=== PATIENT | female | born 1955 | race Caucasian/White ===

== ENCOUNTER → 2016-08-16 | Outpatient (CLI) | payer BC, OTHER ==
[~2016-08-16] MED LIST: ATOR-24 PO; BIAXIN PO; CZR50 PO; DOXE10CA PO; FEXO1TAB46 PO; GABA-112 PO; LEVO100T PO; LEVO75TA PO; LOSA50TA6 PO; METO25TA3 PO; OMEP40CA PO; RANI300T2 PO; TRIATAB3 PO
[2016-08-16 14:57] LABS: BASO % 0.4 %; BASO ABS # 0.03 K/uL (0-0.2); COMPLETE YES; EOS % 2.2 %; HEMATOCRIT 43.1 % (37-47); IG% 0.4 %; LYMPH ABS # 2.21 K/uL (1.2-3.4); MEAN CELL VOLUME 89.8 fL (80-100); MEAN CORPUSCULAR HEMOGLOBIN 29.4 pg (25-34); MEAN CORPUSCULAR HGB CONC 32.7 g/dl (32-36); MEAN PLATELET VOLUME 10.6 fL (7.4-10.4); MONO % 5.5 %; NEUT % 62.5 %; PLATELET COUNT 282 K/uL (130-400); WHITE BLOOD COUNT 7.63 K/uL (4.8-10.8)
[2016-08-16 15:06] LABS: ALT/SGPT 36 U/L (12-78); AST/SGOT 15 U/L (15-37); BLOOD UREA NITROGEN 17 mg/dl (7-18); BUN/CREATININE RATIO 19.9 (10-20); CALCIUM 8.9 mg/dl (8.5-10.1); CARBON DIOXIDE 27 mmol/L (21-32); CHLORIDE 106 mmol/L (98-107); CREATININE 0.86 mg/dl (0.60-1.20); GLUCOSE 122 mg/dl (70-99); POTASSIUM 4.2 mmol/L (3.5-5.1); SODIUM 141 mmol/L (136-145)
[2016-08-16 15:11] LABS: ALB/GLOB RATIO 1.2 (0.9-2); ALKALINE PHOSPHATASE 62 U/L (45-117); CHOLESTEROL 136 mg/dl (0-200); CHOLESTEROL/HDL RATIO 2.5; HDL CHOLESTEROL 55 mg/dl; TRIGLYCERIDES 118 mg/dl (0-150); VERY LOW DENSITY LIPOPROT CALC 24 mg/dl
== END | disposition home or self-care (01) ==
LOC: C.LABSPEC 14:44
PROVIDERS: ATTEND Internal Medicine
DX: I10 Essential (primary) hypertension (principal); E78.5 Hyperlipidemia, unspecified; M54.9 Dorsalgia, unspecified; R53.83 Other fatigue; J02.9 Acute pharyngitis, unspecified

== ENCOUNTER → 2016-11-15 | Outpatient (CLI) | payer OTHER ==
[~2016-11-15] MED LIST changes: -CZR50 PO; -LEVO75TA PO; -OMEP40CA PO
--- NOTE | 2016-11-15 16:33 | MAMMOGRAPHY REPORT ---
BILATERAL DIGITAL SCREENING MAMMOGRAM TOMOSYNTHESIS WITH CAD: 11/15/2016 CLINICAL HISTORY: Routine screening. Patient has no complaints. TECHNIQUE: Breast tomosynthesis in addition to standard 2D mammography was performed. Current study was also evaluated with a Computer Aided Detection (CAD) system. COMPARISON: Comparison is made to exams dated: 10/27/2015 mammogram, 10/21/2014 mammogram, 08/20/2013 m ammogram, 03/13/2012 mammogram, 11/15/2011 mammogram, and 03/11/2011 ultrasound - [facility]. BREAST COMPOSITION: There are scattered areas of fibroglandular density in both breasts. FINDINGS: No suspicious masses, calcifications, or areas of architectural distortion are noted in e ither breast. There has been no significant interval change compared to prior exams. A biopsy marke r clip is again noted in the right central breast. IMPRESSION: ACR BI-RADS CATEGORY 2: BENIGN There is no mammographic evidence of malignancy. A 1 year screening mammogram is recommended. The p atient will receive written notification of the results. Approximately 10% of breast cancers are not detected with mammography. A negative mammographic repor t should not delay biopsy if a clinically suggestive mass is present. Nadira Moeller M.D. /:11/15/2016 15:21:01 Shank Rander: Lucila ORNELAS(Kyle)(M), [facility] letter sent: Normal 1/2 BI-RADS Code: ACR BI-RADS Category 2: Benign
== END | disposition home or self-care (01) ==
LOC: C.MAMM 13:50
PROVIDERS: ATTEND Internal Medicine
DX: Z12.31 Encounter for screening mammogram for malignant neoplasm of breast (principal)

== ENCOUNTER → 2016-12-11 | Day surgery (SDC) | payer BC, OTHER ==
[2016-09-16 15:13] VITALS: BMI 38.0
[2016-12-05 15:35] VITALS: Ht 165.1 cm; Wt 104.5 kg
[~2016-12-11] VITALS: Ht 165.1 cm; Wt 104.5 kg
[~2016-12-11] MED LIST changes: -BIAXIN PO; +LIDOCAINE HCL 2% 2 ML VIAL (20MG/ML) ONE; +MIDAZOLAM HCL 1 MG/ML 2ML VIAL ONE; +ONDANSETRON INJ 2 MG/ML 2 ML VIAL ONE; +PROPOFOL IV EMULSION 10 MG/ML 20 ML VIAL IV ONE; +SODIUM CHLORIDE 0.9% 500ML 500 ML IV ONE
--- NOTE | 2016-12-11 08:37 | Endo History and Physical ---
History & Physical Date of Service: December 11, 2016. Chief Complaint: history of polyps Referring Physician: Dr. Bergman History of Present Illness 61 yo CF who presents for colonoscopy secondary to history of colon polyps. Past Medical History Diabetes, Arthritis, Reflux, High Cholesterol, Hypertension, Thyroid Disease, Kidney Disease Past Surgical History Hx Cardiac Surgery: Yes (HEART CATH, NO STENTS) Hx Internal Defibrillator: No Hx Pacemaker: No Hx Abdominal Surgery: Yes (ORIN BSO, OOPHORECTOMY, APPY, WEDGE RESECTION X2) Hx of Implantable Prosthesis: No Hx Post-Op Nausea and Vomiting: No Hx Cancer Surgery: No Hx Thoracic Surgery: No Hx Orthopedic: Yes (LT/RT TKA) Hx Urinary Tract Surgery: No Family History Colon CA Social History Smoking Status: Never Smoker Hx Substance Use: No Hx Alcohol Use: Yes (OCC) Allergies Coded Allergies: No Known Allergies (Verified , 12/09/16) Current Medications Reported Home Medications Medications Dose Route/Sig Max Daily Dose Days Date Category Triamterene/Hctz 37.5-25MG (Triamterene/HCTZ) 1 Tab Tab 0.5 Tab PO Q2D 09/16/16 Reported Neurontin (Gabapentin) 100 Mg Cap 100 Mg PO BID 09/16/16 Reported Sinequan (Doxepin HCl) 10 Mg Cap 10 Mg PO HS 09/16/16 Reported Ivon (Fexofenadine Hcl) 180 Mg Tab 180 Mg PO BID 09/16/16 Reported Synthroid (Levothyroxine Sodium) 100 Mcg Tab 100 Mcg PO QAM 09/16/16 Reported Cozaar (Losartan Potassium) 50 Mg Tab 50 Mg PO QPM 09/16/16 Reported Zantac (Ranitidine HCl) 300 Mg Tab 300 Mg PO HS 01/13/14 Reported Toprol Xl (Metoprolol Succinate) 25 Mg Tabcr 25 Mg PO QPM 01/13/14 Reported Lipitor (Atorvastatin Calcium) 40 Mg Tab 40 Mg PO HS 01/13/14 Reported Vital Signs Weight (Kilograms): 104.55 Height (Feet): 5 Height (Inches): 5 Date Time Temp Pulse Resp B/P Pulse Ox O2 Delivery O2 Flow Rate FiO2 12/11/16 08:13 36.6 80 20 161/97 96 Room Air Physical Exam General Appearance: WD/WN, no apparent distress Respiratory/Chest: Auscultation: breath sounds normal Cardiovascular: Heart Auscultation: RRR Abdomen: Bowel Sounds: normal Inspection & Palpation: soft, non-distended, no tenderness, guarding & rebound Assessment and Plan Assessment: 61 yo CF who presents for colonoscopy secondary to history of colon polyps. Plan: Proceed with colonoscopy.
--- NOTE | 2016-12-11 09:23 | Discharge Instructions ---
Endoscopy Patient Instructions Date / Procedure(s) Performed December 11, 2016. Colonoscopy Allergy Information Coded Allergies: No Known Allergies (Verified , 12/09/16) Discharge Date / Findings December 11, 2016. Diverticulosis Internal hemorrhoids Medication Instructions OK to resume all medications today as prescribed Reported Home Medications Medications Dose Route/Sig Max Daily Dose Days Date Category Triamterene/Hctz 37.5-25MG (Triamterene/HCTZ) 1 Tab Tab 0.5 Tab PO Q2D 09/16/16 Reported Neurontin (Gabapentin) 100 Mg Cap 100 Mg PO BID 09/16/16 Reported Sinequan (Doxepin HCl) 10 Mg Cap 10 Mg PO HS 09/16/16 Reported Ivon (Fexofenadine Hcl) 180 Mg Tab 180 Mg PO BID 09/16/16 Reported Synthroid (Levothyroxine Sodium) 100 Mcg Tab 100 Mcg PO QAM 09/16/16 Reported Cozaar (Losartan Potassium) 50 Mg Tab 50 Mg PO QPM 09/16/16 Reported Zantac (Ranitidine HCl) 300 Mg Tab 300 Mg PO HS 01/13/14 Reported Toprol Xl (Metoprolol Succinate) 25 Mg Tabcr 25 Mg PO QPM 01/13/14 Reported Lipitor (Atorvastatin Calcium) 40 Mg Tab 40 Mg PO HS 01/13/14 Reported Provider Instructions Activity Restrictions - No exercising or heavy lifting for 24 hours. - Do not drink alcohol the day of the procedure. - Do not drive a car or operate machinery until the day after the procedure. - Do not make any important decisions or sign important papers in 24 hours after the procedure. Following Day: - Return to full activity which may include returning to work/school. Diet Start your diet with liquids and light foods (jello, soup, juice, toast). Then eat your usual diet if not nauseated. Treatment For Common After Affects For mild abdominal pain, bloating, or excessive gas: - Rest - Eat lightly - Lie on right side Follow-Up Information Follow-up with Dr. Bergman as scheduled Anesthesia Information What You Should Know You have had a procedure that required some medicine to reduce anxiety and discomfort. This treatment is called moderate sedation. After receiving the treatment, you may be sleepy, but you will be able to breathe on your own. The effects of the treatment may last for several hours. Follow these instructions along with Activity/Diet recommendations noted above: * Do NOT do anything where dizziness or clumsiness would be dangerous. * Rest quietly at home today, then you can be up and about tomorrow. * Have a responsible person stay with you the rest of today. * You may have had an I.V. today. If so, you may take the dressing off later today. Recommendations Call your doctor if: * Trouble breathing * Continuous vomiting for more than 24 hours * Temperature above 101 degrees * Severe abdominal pain or bloating * Pain not relieved by pain medicine ordered * There is increased drainage or redness from any incision * A large amount of rectal bleeding greater than 2-3 tablespoons. (If you had a polyp/s removed or have hemorrhoids, a small amount of blood - from the rectum is to be expected.) * You have any unanswered questions or concerns. IN THE EVENT OF A SERIOUS EMERGENCY, GO TO THE NEAREST EMERGENCY ROOM Your discharge instructions were prepared by provider Kana Mackenzie. Patient Instructions Signature Page Erika Vinson Patient (or Guardian) Signature/Date: I have read and understand the instructions given to me by my caregivers. Caregiver/RN/Doctor Signature/Date: The above-named patient and/or guardian has received patient instructions on this date. + Original Patient Signature Page (only) stays with chart. Please make copy for patient.
--- NOTE | 2016-12-11 09:23 | GI REPORT ---
Procedure Date: 12/11/2016 8:56 AM Procedure: Colonoscopy Indications: High risk colon cancer surveillance: Personal history of colonic polyps Medicines: Monitored Anesthesia Care Complications: No immediate complications. Estimated Blood Loss: Estimated blood loss: none. Procedure: Pre-Anesthesia Assessment: - Prior to the procedure, a History and Physical was performed, and patient medications and allergies were reviewed. The patient's tolerance of previous anesthesia was also reviewed. The risks and benefits of the procedure and the sedation options and risks were discussed with the patient. All questions were answered, and informed consent was obtained. Prior Anticoagulants: The patient has taken no previous anticoagulant or antiplatelet agents. ASA Grade Assessment: III - A patient with severe systemic disease. After reviewing the risks and benefits, the patient was deemed in satisfactory condition to undergo the procedure. After I obtained informed consent, the scope was passed under direct vision. Throughout the procedure, the patient's blood pressure, pulse, and oxygen saturations were monitored continuously. The scope was introduced through the anus and advanced to the cecum, identified by appendiceal orifice and ileocecal valve. The colonoscopy was performed without difficulty. The patient tolerated the procedure well. The quality of the bowel preparation was good. The ileocecal valve, appendiceal orifice, and rectum were photographed. Findings: Multiple small-mouthed diverticula were found in the sigmoid colon. Non-bleeding internal hemorrhoids were found during retroflexion. The hemorrhoids were small. Impression: - Diverticulosis in the sigmoid colon. - Non-bleeding internal hemorrhoids. - No specimens collected. Recommendation: - Resume previous diet. - Continue present medications. - Repeat colonoscopy in 5 years for surveillance. - Return to primary care physician as previously scheduled. Kana Mackenzie, 12/11/2016 9:22:38 AM This report has been signed electronically. Note Initiated On: 12/11/2016 8:56 AM I attest to the content of the Intraoperative Record and orders documented therein, exceptions below
--- NOTE | 2016-12-11 09:26 | Anesthesiology Progress Note ---
Anesthesia Post Op Note Date & Time December 11, 2016 at 09:26 Vital Signs Pain Intensity: 0 Vital Signs Past 12 Hours Date Time Temp Pulse Resp B/P Pulse Ox O2 Delivery O2 Flow Rate FiO2 12/11/16 09:19 90 16 117/83 96 Room Air 12/11/16 08:13 36.6 80 20 161/97 96 Room Air Notes Mental Status: alert / awake / arousable, participated in evaluation Pt Amnestic to Procedure: Yes Nausea / Vomiting: adequately controlled Pain: adequately controlled Airway Patency, RR, SpO2: stable & adequate BP & HR: stable & adequate Hydration State: stable & adequate Anesthetic Complications: no major complications apparent
[2016-12-11 09:56] VITALS: BP 163/95; PULSE 76; O2SAT 96
== END | disposition home or self-care (01) ==
LOC: C.GI 07:43
PROVIDERS: ATTEND Internal Medicine
DX: Z12.11 Encounter for screening for malignant neoplasm of colon (principal); K57.30 Diverticulosis of large intestine without perforation or abscess without bleeding; K64.8 Other hemorrhoids; E11.9 Type 2 diabetes mellitus without complications; K21.9 Gastro-esophageal reflux disease without esophagitis; E78.00 Pure hypercholesterolemia, unspecified; I12.9 Hypertensive chronic kidney disease with stage 1 through stage 4 chronic kidney disease, or unspecified chronic kidney disease; N18.9 Chronic kidney disease, unspecified; E07.9 Disorder of thyroid, unspecified; Z80.0 Family history of malignant neoplasm of digestive organs; Z86.010 Personal history of colon polyps; Z79.899 Other long term (current) drug therapy

== ENCOUNTER → 2017-01-27 | Outpatient (CLI) | payer OTHER ==
[~2017-01-27] MED LIST changes: -LIDOCAINE HCL 2% 2 ML VIAL (20MG/ML) ONE; -MIDAZOLAM HCL 1 MG/ML 2ML VIAL ONE; -ONDANSETRON INJ 2 MG/ML 2 ML VIAL ONE; -PROPOFOL IV EMULSION 10 MG/ML 20 ML VIAL IV ONE; -SODIUM CHLORIDE 0.9% 500ML 500 ML IV ONE
--- NOTE | 2017-01-27 11:23 | DIAGNOSTIC IMAGING REPORT ---
MR OF THE CERVICAL SPINE WITHOUT IV CONTRAST CLINICAL HISTORY: 61-year-old female with cervical radiculopathy, complaining of cervicalgia, thoracic pain, and low back pain. COMPARISON STUDY: None. TECHNIQUE: Multisequence, multiplanar MR imaging of the cervical spine was performed without the use of intravenous contrast. FINDINGS: Vertebral bodies: Vertebral body height, alignment, and bone marrow signal intensity normal. Normal atlantoaxial articulation. Intervertebral discs: Mild disc height loss at C5-6 and C6-7, where there are disc osteophyte complexes resulting in effacement of the ventral thecal sac to a greater degree at C5-6 further described below. Focally increased signal intensity within the C6-7 disc space and to a lesser degree at C7-T1. C2-C3: Normal. C3-C4: Normal. C4-C5: Normal. C5-C6: Moderate right and mild left neural foraminal narrowing secondary to uncovertebral hypertrophy. Disc osteophyte complex effaces the ventral thecal sac, contouring the spinal cord without evidence of significant flattening or impingement. Spinal cord maintains normal signal intensity at this level. C6-C7: Mild right neural foraminal narrowing due to uncovertebral hypertrophy. Disc osteophyte complex mildly effaces the ventral thecal sac but spares the spinal cord. C7-T1: Normal. Spinal cord: Contouring of the spinal cord at the C5-6 level as described above. No flattening or signal intensity abnormality. Soft tissues: The paraspinous and prevertebral soft tissues are normal in appearance. Brain parenchyma: Partially imaged brain parenchyma at the skull base is within normal limits. IMPRESSION: 1. Disc osteophyte complexes at C5-6 and C6-7 resulting in right greater than left neural foraminal narrowing at these levels, described above. 2. Signal abnormality within the C6-7 disc space is most likely degenerative in etiology in the absence of infectious symptoms and given lack of paraspinal edema. Electronically signed by: Declan Santacruz 01/27/2017 11:21 AM Dictated Date/Time: 01/27/2017 11:04 AM
--- NOTE | 2017-01-27 11:35 | DIAGNOSTIC IMAGING REPORT ---
LUMBAR SPINE W/O CONTRAST CLINICAL HISTORY: 61 year-old Female presenting with R LUMBAR RADICULOPATHY. TECHNIQUE: Multisequence, multiplanar MR imaging of the lumbar spine was performed without the use of intravenous contrast. COMPARISON: None FINDINGS: Vertebral bodies: Normal height and alignment. A few T2 hyperintense, T1 hyperintense round foci in the vertebral bodies consistent with benign hemangiomas. Bone marrow signal intensity otherwise normal. Intervertebral discs: Mild disc desiccation at L5-S1. Disc maintain normal height. T12-L1: Normal. L1-2: Normal. L2-3: Normal. L3-4: Normal. L4-5: Right greater than left facet hypertrophy. This does not result in significant neural foraminal narrowing. L5-S1: Normal. Soft tissues: No paraspinal edema. Spinal cord: The spinal cord ends in good position at L1. Cauda equina normal. IMPRESSION: 1. Right greater than left facet hypertrophy at L4-5 without significant neural foraminal narrowing. Electronically signed by: Declan Santacruz 01/27/2017 11:34 AM Dictated Date/Time: 01/27/2017 11:21 AM
== END | disposition home or self-care (01) ==
LOC: C.MRI 09:50
PROVIDERS: ATTEND Internal Medicine
DX: M54.16 Radiculopathy, lumbar region (principal); M54.12 Radiculopathy, cervical region

== ENCOUNTER → 2017-01-29 | Outpatient (CLI) | payer OTHER ==
[2017-01-29 13:39] LABS: BLOOD UREA NITROGEN 16 mg/dl (7-18); BUN/CREATININE RATIO 17.3 (10-20); CALCIUM 9.2 mg/dl (8.5-10.1); CARBON DIOXIDE 26 mmol/L (21-32); CHLORIDE 108 mmol/L (98-107); CREATININE 0.91 mg/dl (0.60-1.20); GLUCOSE 141 mg/dl (70-99); POTASSIUM 4.5 mmol/L (3.5-5.1); SODIUM 141 mmol/L (136-145)
[2017-01-29 13:50] LABS: CHOLESTEROL 108 mg/dl (0-200); CHOLESTEROL/HDL RATIO 2.2; HDL CHOLESTEROL 50 mg/dl; TRIGLYCERIDES 127 mg/dl (0-150); VERY LOW DENSITY LIPOPROT CALC 25 mg/dl
[2017-01-29 14:05] LABS: ESTIMATED AVERAGE GLUCOSE 163 mg/dl; HA1C FLAG Normal (Normal)
== END | disposition home or self-care (01) ==
LOC: C.LABSPEC 10:00
PROVIDERS: ATTEND Internal Medicine
DX: R73.9 Hyperglycemia, unspecified (principal); E03.9 Hypothyroidism, unspecified; I10 Essential (primary) hypertension

== ENCOUNTER → 2017-03-28 | Outpatient (CLI) | payer OTHER | END | disposition home or self-care (01) | LOC: C.LABSPEC 12:17 | PROVIDERS: ATTEND Internal Medicine | DX: N39.0 Urinary tract infection, site not specified (principal) ==

== ENCOUNTER → 2017-07-07 | Outpatient (CLI) | payer OTHER ==
[2017-07-07 14:02] LABS: ESTIMATED AVERAGE GLUCOSE 134 mg/dl; HA1C FLAG Normal (Normal)
[2017-07-07 14:22] LABS: BLOOD UREA NITROGEN 23 mg/dl (7-18); BUN/CREATININE RATIO 24.9 (10-20); CALCIUM 9.4 mg/dl (8.5-10.1); CARBON DIOXIDE 26 mmol/L (21-32); CHLORIDE 106 mmol/L (98-107); CHOLESTEROL 133 mg/dl (0-200); CREATININE 0.92 mg/dl (0.60-1.20); GLUCOSE 117 mg/dl (70-99); SODIUM 140 mmol/L (136-145)
[2017-07-07 14:32] LABS: CHOLESTEROL/HDL RATIO 2.5; HDL CHOLESTEROL 53 mg/dl; TRIGLYCERIDES 137 mg/dl (0-150); VERY LOW DENSITY LIPOPROT CALC 27 mg/dl
== END | disposition home or self-care (01) ==
LOC: C.LABSPEC 12:22
PROVIDERS: ATTEND Internal Medicine
DX: I10 Essential (primary) hypertension (principal); E78.5 Hyperlipidemia, unspecified; E11.9 Type 2 diabetes mellitus without complications; E03.9 Hypothyroidism, unspecified

== ENCOUNTER 2023-10-14 12:16 | Inpatient (IN) ==
[2023-10-14 12:59] LABS: Basophils # (auto) 0.05 K/uL (0.00-0.20); Basophils % (auto) 0.3 %; Eosinophils % (auto) 0.5 %; Hematocrit (blood only) 39.8 % (37.0-47.0); Hemoglobin 13.1 g/dl (12.0-16.0); Immature Granulocytes # (auto) 0.22 K/uL (0.01-0.20); Immature Granulocytes % (auto) 1.2 %; Lymphocytes # (auto) 1.11 K/uL (1.20-3.40); Lymphocytes % (auto) 6.1 %; Mean Corpuscular Hemoglobin 29.1 pg (25.0-34.0); Mean Corpuscular Hgb Conc 32.9 g/dL (32.0-36.0); Mean Corpuscular Volume 88.4 fL (80.0-100.0); Neutrophils # (auto) 15.75 K/uL (1.40-6.50); Neutrophils % (auto) 85.9 %; Platelet Count 210 K/uL (130-400); RDW Coefficient of Variation 14.1 % (11.5-14.5); RDW Standard Deviation 46.5 fL (36.4-46.3); White Blood Count 18.33 K/ul (4.8-10.8)
[2023-10-14 13:05] LABS: Alanine Aminotransferase 17 U/L (7-52); Albumin Globulin Ratio 1.6 (0.9-2); Albumin Level 4.4 gm/dl (3.4-5.0); Alkaline Phosphatase 33 U/L (34-104); Anion Gap 14 (3-11); Aspartate Aminotransferase 13 U/L (13-39); BUN Creatinine Ratio 17.1 (10-20); Bilirubin,Total 1.1 mg/dl (0.2-1.0); Blood Urea Nitrogen 19 mg/dl (6-23); Calcium 9.2 mg/dl (8.6-10.3); Carbon Dioxide 24 mmol/L (21-32); Chloride 98 mmol/L (98-107); Est GFR (African American) 60.4 ml/min; Est GFR (Non-African American) 52.1 ml/min; Globulin 2.7 gm/dl (2.5-4.0); Glucose 157 mg/dl (70-99(Fasting)); Potassium 3.6 mmol/L (3.5-5.1); Sodium 136 mmol/L (136-145); Total Protein 7.1 gm/dl (6.0-8.3)
--- NOTE | 2023-10-14 14:20 | XRay Report ---
XR chest 1V not portable HISTORY: weakness COMPARISON: None. FINDINGS: No pneumothorax. No pleural effusions. There are low lung volumes. Small left basilar linea r densities favor subsegmental atelectasis or scarring. Otherwise, the lungs are clear. No evidence f or pulmonary edema. The cardiac silhouette is top normal in size. There are calcifications within the aortic knob. No acute fractures identified. IMPRESSION: No acute process. ACT 112: Negative or not required by law. Electronically signed by: Aravind White M.D. 10/14/2023 2:18 PM
--- NOTE | 2023-10-14 14:59 | Electrocardiogram Report ---
Test Reason : Blood Pressure : / mmHG Vent. Rate : 107 BPM Atrial Rate : 107 BPM P-R Int : 190 ms QRS Dur : 096 ms QT Int : 300 ms P-R-T Axes : 017 -34 120 degrees QTc Int : 400 ms Sinus tachycardia Left axis deviation Minimal voltage criteria for LVH, may be normal variant Poor R wave progression, consider anterior WA vs. lead placement vs. LVH Nonspecific ST abnormality Abnormal ECG When compared with ECG of 19-JUL-2004 13:40, QRS axis Shifted left Nonspecific T wave abnormality, worse in Inferior leads Nonspecific T wave abnormality now evident in Anterolateral leads QT has shortened Confirmed by Levy Mejias ([id number]) on 10/14/2023 2:59:34 PM Referred By: Confirmed By:Nick Mejias
--- NOTE | 2023-10-14 15:34 | Emergency Department Note ---
Impression & Plan Sepsis, History of bilateral knee replacement, History of UTI, Bilateral knee effusions, Leukocytosis ED Provider Note NAME: HAKEEM JAEGER AGE: 67 SEX: F : 1955 ARRIVES VIA: Walk-In INFORMANT: Patient ED PROVIDER(S): Mike Amaro MD CHIEF COMPLAINT: Fever, shaking, pain, numbness tingling. PLAN: Disposition: Admit MEDICAL DECISION MAKING: The patient is a pleasant 67-year-old woman with a past medical history of neuropathy, fibromyalgia, arthritis, history of bilateral knee replacements remotely, sacroiliitis, hypertension, hyperlipidemia, diabetes who presents to the emergency department via walk-in, accompanied by family for fevers, chills, rigors with generalized body pains and paresthesias in her extremities developing over the past 24 hours. In particular she notes severe pain in bilateral knees which she has not had in the past. She reports she needed to use a walker today to even try and get herself to the hospital today. She denies any cough, congestion, chest pain, shortness of breath. She denies any nausea or vomiting. She was recently treated for urinary tract infection by urgent care with a 5-day course of antibiotics but does not recall the medication she received. She reports she completed the course and feels that her burning with urination resolved. She then went to visit family who live 2 hours away and upon returning from this trip yesterday began to feel feverish and pain as described. Of note, the patient did arrive to emergency department during time of high volume, acuity and prolonged emergency department waiting times. Critical pathways initiated from triage. The patient did arrive to the emergency department afebrile with tachycardia in the 100s and vital signs otherwise stable. On my examination the patient is uncomfortable but no acute distress, afebrile with heart rate in the 110s and vital signs otherwise stable. She appears clinically dry. She has generalized weakness throughout with equivocal increased weakness in bilateral lower extremities versus strength limited secondary to pain in bilateral knees which appear warm, swollen with effusion, with mild nonspecific papular erythematous rash anteriorly of bilateral knees. She has passive range of motion intact but does cause pain. Active range of motion appears to be limited secondary to pain. There is no calf edema or discrete tenderness. WBC 18 K with neutrophil predominance with left shift. H/H and platelets within normal limits. Chemistry without metabolic acidosis. LFTs are unremarkable. ESR is mildly elevated at 38 however CRP is elevated at 27. Procalcitonin is elevated at 6.26. UA without bacteria or WBCs or nitrites however in the setting of her recent antibiotic therapy which may mask results of undertreated UTI given concern for possible bacteremia given the patient's presentation. Respiratory viral panel/BioFire was negative. Lyme screen was negative. Anaplasma and Babesia smear were negative with DNA testing pending. Plain film of bilateral knees was performed and demonstrates large bilateral knee effusions. Given concern for possible undertreated urinary infection leading to bacteremia concern for possible septic arthritis in the setting of her bilateral knee replacements. I did review the case with orthopedic surgery on-call, Dr. Damon. Appreciate consultation and recommendations. Agrees that knee aspiration not necessary emergently at this time however agrees with blood cultures and empiric treatment. He will send a message to the patient's orthopedist, Dr. Gomez. Recommends keeping the patient n.p.o. after midnight in the event the patient may need a washout of her knees in the morning. Empiric treatment with ceftriaxone and daptomycin provided in addition to doxycycline for the possibility of Anaplasma though pattern of lab results do not necessarily suggest this and Anaplasma smear was negative. Case was discussed with Dr. Sen, [facility] [place], who will evaluate the patient for admission. Triage Nursing notes reviewed and agree them. Prior/external medical records reviewed Vital Signs: reviewed Differential diagnosis: Sepsis, UTI, pneumonia, metabolic, electrolyte abnormalities, cardiac sources, intracerebral event, toxicologic, neurologic, as well as other pathologies. ER treatment provided: See below. Diagnostics interpreted by me: ECG: Sinus tachycardia, 107 bpm, no ectopy, LVH, nonspecific ST abnormality, no overt ST elevation or depression, QTc 400, QRS 96. Cardiac Monitoring: An order for continuous cardiac monitoring was placed and demonstrated sinus tachycardia, 107 bpm, no ectopy. Laboratory studies: See below Imaging studies: See below Consultation(s): Orthopedic surgery on-call, Dr. Damon. [facility] hospitalist, Dr. Sen. HPI: he patient is a pleasant 67-year-old woman with a past medical history of neuropathy, fibromyalgia, arthritis, history of bilateral knee replacements remotely, sacroiliitis, hypertension, hyperlipidemia, diabetes who presents to the emergency department via walk-in, accompanied by family for fevers, chills, rigors with generalized body pains and paresthesias in her extremities developing over the past 24 hours. In particular she notes severe pain in bilateral knees which she has not had in the past. She reports she needed to use a walker today to even try and get herself to the hospital today. She denies any cough, congestion, chest pain, shortness of breath. She denies any nausea or vomiting. She was recently treated for urinary tract infection by urgent care with a 5-day course of antibiotics but does not recall the medication she received. She reports she completed the course and feels that her burning with urination resolved. She then went to visit family who live 2 hours away and upon returning from this trip yesterday began to feel feverish and pain as described. ROS: See above HPI for pertinent positives & negatives. A total of 10 systems reviewed and were otherwise negative. VITALS:See Below PHYSICAL EXAMINATION: GENERAL: Awake, alert, uncomfortable-appearing, in no distress, BMI 34.4. HENT: Normocephalic, atraumatic. Oropharynx with dry mucous membranes and otherwise unremarkable. EYES: Normal conjunctiva. Sclera non-icteric. NECK: Supple. No nuchal rigidity. FROM. No JVD. RESPIRATORY: Clear to auscultation. CARDIAC: Tachycardic rate, normal rhythm. Extremities warm and well perfused. Pulses equal. ABDOMEN: Soft, non-distended. No tenderness to palpation. No rebound or guarding. No masses. RECTAL: Deferred. MUSCULOSKELETAL: Chest examination reveals no tenderness. The back is symmetrical on inspection without obvious abnormality. There is no CVA tenderness to palpation. EXTREMITIES: Generalized weakness throughout with equivocal increased weakness in bilateral lower extremities versus strength limited secondary to pain in bilateral knees which appear warm, swollen with effusion, with mild nonspecific papular erythematous rash anteriorly of bilateral knees. She has passive range of motion intact but does cause pain. Active range of motion appears to be limited secondary to pain. There is no calf edema or discrete tenderness. NEURO: Normal sensorium. No sensory or motor deficits noted. SKIN: No jaundice noted. ED COURSE: Critical Care: I have personally spent greater than 45 minutes of critical care time in the direct management of this patient. This includes bedside care, interpretation of diagnostic studies, and testing, discussion with consultants, patient, and family members, and other required patient management activities. This 45 minutes is in excess of all separately billable procedures. Mike Amaro MD Past Med/Surg History Medical History Migraine without aura, not intractable, without status migrainosus History of COVID-19 6 months ago in 2021, tested thru [facility], not hosp; cough, "feeling crappy," fever, loss taste>resolved w/exception of altered taste GERD without esophagitis Fibromyalgia Sacroiliitis Obesity (BMI 30-39.9) Frequent PVCs History of adverse effect of anesthesia Pt states she will lose some of her hair a few weeks after anesthesia Abdominal adhesions PT REPORTS D/T ABDOMINAL ADHESIONS RECEIVED MORE OF A GENERAL ANESTHESIA WITH PRIOR COLONOSCOPIES PT DENIES HX OF ANESTHESIA REACTION(S) Back problem AGE RELATED DEGENERATION Stage 3 chronic kidney disease "never an official diagnosis, numbers had gone up due to NSAID use" History of colonic polyps BENIGN PVCs (premature ventricular contractions) asymptomatic; f/u PCP Migraines hx Hypothyroid Hiatal hernia Acid reflux Angioedema "idiopathic" - follows Dr. Casanova STRESS TRIGGERS; certain things can cause this to trigger and make her cough and throat swell (swelling usually takes 6-8 hours) Diverticulosis hx Environmental allergies HX COUGH VARIANT ASTHMA D/T CLEANING SOLUTION AMPHYL ? REMOTE HX, NO CURRENT OR FURTHER PROBLEMS WITH Type 2 diabetes mellitus Hypertension Dyslipidemia Neuropathy Chronic idiopathic urticaria Surgical History History of endoscopy History of total bilateral knee replacement History of gynecologic surgery MULTIPLE History of colonoscopy History of oophorectomy History of hysterectomy History of appendectomy Family History Family/Other Cancer Hypertension Mother Allergies Sinusitis Stroke Breast cancer Father Diabetes Family history of bladder cancer Sister Diabetes Social History Smoking Status: Never smoker Second Hand Exposure: No; Do You Dip or Chew Tobacco: No; Hx Alcohol Use: Yes Hx Substance Use: No Preferred Language: Japanese Communication Ability: Effective [employer] Worker Required: No Beliefs That Will Affect Care: None Current Living Situation: Spouse current occupational status: employed Feels Safe at Home: Yes Assistive Devices: Glasses Allergies Allergies Allergy/AdvReac Type Severity Reaction Status Date / Time No Known Allergies Allergy Verified 08/06/23 14:27 Home Meds Home Medications Medication Instructions Recorded Confirmed fexofenadine 180 mg tablet 180 mg PO BID 04/17/20 10/14/23 (Ivon Allergy) alpha lipoic acid 600 mg tablet 600 mg PO QAM 12/25/22 10/14/23 amlodipine 5 mg-olmesartan 40 mg 1 tab PO HS 12/25/22 10/14/23 tablet cholecalciferol (vitamin D3) 125 125 mcg PO QAM 12/25/22 10/14/23 mcg (5,000 unit) capsule omeprazole 20 mg capsule,delayed 20 mg PO QPM 12/25/22 10/14/23 release Previous Rx's Medication Instructions Recorded epinephrine 0.3 mg/0.3 mL 0.3 mg (0.3 mL) IM Q20M PRN 08/26/22 injection, auto-injector anaphylaxis #2 ea omalizumab 150 mg/mL subcutaneous 300 mg (2 mL) subcut .COMPLEX #2 mL 01/10/23 syringe (Xolair) atorvastatin 40 mg tablet 40 mg PO HS #90 tabs 04/21/23 famotidine 40 mg tablet 40 mg PO BID #180 tabs 04/30/23 levothyroxine 125 mcg tablet 125 mcg PO QAM #90 tabs 05/12/23 (Synthroid) metoprolol succinate 100 mg 100 mg PO QAM #90 tabs 07/02/23 tablet,extended release 24 hr gerspyfzyd-dpqcaqfkmmbzx-vizrxndc 1 tab PO BID PRN headache #10 tabs 08/06/23 50 mg-325 mg-40 mg tablet doxepin 100 mg capsule 100 mg PO HS #90 caps 08/06/23 topiramate 25 mg tablet (Topamax) 25 mg PO BID #180 tabs 08/06/23 metformin 500 mg tablet,extended 1,000 mg (2 x 500 mg) PO BID #360 08/19/23 release 24 hr tabs dulaglutide 0.75 mg/0.5 mL 0.75 mg (0.5 mL) subcut WK #6 mL 10/01/23 subcutaneous pen injector (Trulicity) Results & Data (ED) Vital Signs Vital Signs - 24 hr 10/14/23 12:18 10/14/23 16:17 10/14/23 18:00 Temperature 36.6 C 36.8 C 37.1 C Temperature Source Temporal Artery Scan Oral Oral Pulse Rate 100 H Pulse Rate [Right Finger] 113 H 111 H Pulse Rhythm [Right Finger] Regular Regular Pulse Strength [Right Finger] Normal Normal Respiratory Rate 20 20 20 Respiratory Effort / Characteristics Non-Labored Spontaneous Non-Labored Spontaneous Non-Labored Spontaneous Respiratory Depth Normal Normal Normal Respiratory Pattern Regular Regular Regular Blood Pressure 106/71 Blood Pressure [Right Arm] 133/71 127/88 Blood Pressure Mean 82 Blood Pressure Mean [Right Arm] 91 101 Blood Pressure Position Sitting Blood Pressure Position [Right Arm] Semi-fowlers Semi-fowlers Pulse Oximetry 94 96 96 Oxygen Delivery Method Room Air Room Air Room Air Sepsis Recent Fever Within 48 Hours No Sepsis New/Unexplained Change in Mental Status No Sepsis Action Taken by Nursing No Action Required 10/14/23 18:00 10/14/23 21:01 10/14/23 21:03 Temperature 37.1 C Temperature Source Oral Pulse Rate 105 H Pulse Rate [Right Finger] 103 H Pulse Rhythm [Right Finger] Regular Pulse Strength [Right Finger] Normal Respiratory Rate 18 Respiratory Effort / Characteristics Non-Labored Respiratory Depth Normal Respiratory Pattern Blood Pressure Blood Pressure [Right Arm] 119/68 Blood Pressure Mean Blood Pressure Mean [Right Arm] 85 Blood Pressure Position Blood Pressure Position [Right Arm] Pulse Oximetry 95 Oxygen Delivery Method Room Air Sepsis Recent Fever Within 48 Hours Sepsis New/Unexplained Change in Mental Status Sepsis Action Taken by Nursing Laboratory Data Attestation: I reviewed the patient's lab results. 10/14/23 12:28 10/14/23 12:28 Lab Results 10/14/23 10/14/23 10/14/23 Range/Units 12:28 16:39 17:52 WBC 18.33 H (4.8-10.8) K/ul RBC 4.50 (4.20-5.40) M/uL Hgb 13.1 (12.0-16.0) g/dl Hct 39.8 (37.0-47.0) % MCV 88.4 (80.0-100.0) fL MCH 29.1 (25.0-34.0) pg MCHC 32.9 (32.0-36.0) g/dL RDW Std Deviation 46.5 H (36.4-46.3) fL RDW Coeff of Aliyah 14.1 (11.5-14.5) % Plt Count 210 (130-400) K/uL MPV 10.0 (9.4-12.4) fL Immature Gran % (Auto) 1.2 % Neut % (Auto) 85.9 % Lymph % (Auto) 6.1 % [place] % (Auto) 6.0 % Eos % (Auto) 0.5 % Baso % (Auto) 0.3 % Neut # (Auto) 15.75 H (1.40-6.50) K/uL Lymph # (Auto) 1.11 L (1.20-3.40) K/uL [place] # (Auto) 1.10 H (0.11-0.59) K/uL Eos # (Auto) 0.10 (0.00-0.50) K/uL Baso # (Auto) 0.05 (0.00-0.20) K/uL Immature Gran # (Auto) 0.22 H (0.01-0.20) K/uL Toxic Vacuolation 3+ Echinocytes 1+ ESR 38 H (0-30) mm/hr Sodium 136 (136-145) mmol/L Potassium 3.6 (3.5-5.1) mmol/L Chloride 98 (98-107) mmol/L Carbon Dioxide 24 (21-32) mmol/L Anion Gap 14 H (3-11) BUN 19 (6-23) mg/dl Creatinine 1.11 (0.6-1.2) mg/dl Est Cr Clr Drug Dosing Not Reportable Est GFR ( Amer) 60.4 ml/min Est GFR (Non-Af Amer) 52.1 ml/min BUN/Creatinine Ratio 17.1 (10-20) Glucose 157 H (70-99(Fasting)) mg/dl Lactate (0.4-2.0) mmol/L Calcium 9.2 (8.6-10.3) mg/dl Total Bilirubin 1.1 H (0.2-1.0) mg/dl AST 13 (13-39) U/L ALT 17 (7-52) U/L Alkaline Phosphatase 33 L (34-104) U/L Total Creatine Kinase 31 (26-192) U/L C-Reactive Protein 27.87 H (0-0.5) mg/dl Total Protein 7.1 (6.0-8.3) gm/dl Albumin 4.4 (3.4-5.0) gm/dl Globulin 2.7 (2.5-4.0) gm/dl Albumin/Globulin Ratio 1.6 (0.9-2) Procalcitonin 6.26 H (0-0.5) ng/ml Urine Color Urine Appearance (Clear) Urine pH (4.5-7.5) Ur Specific [place] (1.000-1.030) Urine Protein (Negative) Urine Glucose (UA) (Negative) Urine Ketones (Negative) Urine Blood (Negative) Urine Nitrite (Negative) Urine Bilirubin (Negative) Urine Urobilinogen (Negative) Ur Leukocyte Esterase (Negative) Urine WBC (Auto) (0-5) /hpf Urine RBC (Auto) (0-4) /hpf U Hyaline Cast (Auto) (0-5) /lpf U Epithel Cells (Auto) (0-5) /lpf Urine Bacteria (Auto) (Negative) Amorphous Sediment (None Prsent) Urine Yeast Adenovirus (PCR) Not Detected (NotDetected) Anaplasma Smear See Comment Babesia Smear See Comment B. pertussis DNA (PCR) Not Detected (NotDetected) B.parapertussis DNA PCR Not Detected (NotDetected) Lyme Disease Screen Negative (Negative) C. pneumoniae DNA (PCR) Not Detected (NotDetected) Coronavirus OC43 (PCR) Not Detected (NotDetected) Coronavirus HKU1 (PCR) Not Detected (NotDetected) Coronavirus 229E (PCR) Not Detected (NotDetected) SARS-CoV-2 (PCR) Not Detected (NotDetected) Coronavirus NL63 (PCR) Not Detected (NotDetected) Human Metapneumovir PCR Not Detected (NotDetected) Influenza Type A (PCR) Not Detected (NotDetected) Influenza Type B (PCR) Not Detected (NotDetected) M. pneumoniae (PCR) Not Detected (NotDetected) Parainfluenza 1 (PCR) Not Detected (NotDetected) Parainfluenza 2 (PCR) Not Detected (NotDetected) Parainfluenza 3 (PCR) Not Detected (NotDetected) Parainfluenza 4 (PCR) Not Detected (NotDetected) RSV (PCR) Not Detected (NotDetected) Entero/Rhino (PCR) Not Detected (NotDetected) 10/14/23 10/14/23 Range/Units 18:06 19:23 WBC (4.8-10.8) K/ul RBC (4.20-5.40) M/uL Hgb (12.0-16.0) g/dl Hct (37.0-47.0) % MCV (80.0-100.0) fL MCH (25.0-34.0) pg MCHC (32.0-36.0) g/dL RDW Std Deviation (36.4-46.3) fL RDW Coeff of Aliyah (11.5-14.5) % Plt Count (130-400) K/uL MPV (9.4-12.4) fL Immature Gran % (Auto) % Neut % (Auto) % Lymph % (Auto) % [place] % (Auto) % Eos % (Auto) % Baso % (Auto) % Neut # (Auto) (1.40-6.50) K/uL Lymph # (Auto) (1.20-3.40) K/uL [place] # (Auto) (0.11-0.59) K/uL Eos # (Auto) (0.00-0.50) K/uL Baso # (Auto) (0.00-0.20) K/uL Immature Gran # (Auto) (0.01-0.20) K/uL Toxic Vacuolation Echinocytes ESR (0-30) mm/hr Sodium (136-145) mmol/L Potassium (3.5-5.1) mmol/L Chloride (98-107) mmol/L Carbon Dioxide (21-32) mmol/L Anion Gap (3-11) BUN (6-23) mg/dl Creatinine (0.6-1.2) mg/dl Est Cr Clr Drug Dosing Est GFR ( Amer) ml/min Est GFR (Non-Af Amer) ml/min BUN/Creatinine Ratio (10-20) Glucose (70-99(Fasting)) mg/dl Lactate 3.1 H* (0.4-2.0) mmol/L Calcium (8.6-10.3) mg/dl Total Bilirubin (0.2-1.0) mg/dl AST (13-39) U/L ALT (7-52) U/L Alkaline Phosphatase (34-104) U/L Total Creatine Kinase (26-192) U/L C-Reactive Protein (0-0.5) mg/dl Total Protein (6.0-8.3) gm/dl Albumin (3.4-5.0) gm/dl Globulin (2.5-4.0) gm/dl Albumin/Globulin Ratio (0.9-2) Procalcitonin (0-0.5) ng/ml Urine Color Dark Yellow Urine Appearance Clear (Clear) Urine pH 5.0 (4.5-7.5) Ur Specific [place] > 1.045 H (1.000-1.030) Urine Protein 1+ H (Negative) Urine Glucose (UA) Negative (Negative) Urine Ketones Trace H (Negative) Urine Blood Negative (Negative) Urine Nitrite Negative (Negative) Urine Bilirubin Negative (Negative) Urine Urobilinogen Negative (Negative) Ur Leukocyte Esterase Negative (Negative) Urine WBC (Auto) 1-5 (0-5) /hpf Urine RBC (Auto) 0-4 (0-4) /hpf U Hyaline Cast (Auto) 10-30 H (0-5) /lpf U Epithel Cells (Auto) >30 H (0-5) /lpf Urine Bacteria (Auto) Negative (Negative) Amorphous Sediment Present A (None Prsent) Urine Yeast Not Reportable Adenovirus (PCR) (NotDetected) Anaplasma Smear Babesia Smear B. pertussis DNA (PCR) (NotDetected) B.parapertussis DNA PCR (NotDetected) Lyme Disease Screen (Negative) C. pneumoniae DNA (PCR) (NotDetected) Coronavirus OC43 (PCR) (NotDetected) Coronavirus HKU1 (PCR) (NotDetected) Coronavirus 229E (PCR) (NotDetected) SARS-CoV-2 (PCR) (NotDetected) Coronavirus NL63 (PCR) (NotDetected) Human Metapneumovir PCR (NotDetected) Influenza Type A (PCR) (NotDetected) Influenza Type B (PCR) (NotDetected) M. pneumoniae (PCR) (NotDetected) Parainfluenza 1 (PCR) (NotDetected) Parainfluenza 2 (PCR) (NotDetected) Parainfluenza 3 (PCR) (NotDetected) Parainfluenza 4 (PCR) (NotDetected) RSV (PCR) (NotDetected) Entero/Rhino (PCR) (NotDetected) Administered Medications Doxycycline Hyclate 100 mg/ (Dextrose) 100 mls @ 50 mls/hr IV NOW STA Stop: 10/14/23 21:50 Last Admin: 10/14/23 20:18 Dose: 50 mls/hr Documented By: KAROL Daptomycin 350 mg/ Syringe 7 mls @ 3.5 mls/min IV Q24H [facility]; Protocol Stop: 10/16/23 19:59 Last Admin: 10/14/23 20:18 Dose: 3.5 mls/min Documented By: KAROL Discontinued Medications Sodium Chloride (Nss) 1,000 mls @ 999 mls/hr IV .Q1H1M ONE Stop: 10/14/23 16:36 Last Infusion: 10/14/23 19:00 Dose: Infused Documented By: Admin: 10/14/23 16:42 Dose: 999 mls/hr Documented By: CAW Ceftriaxone Sodium (Rocephin) 2,000 mg in 50 mls @ 100 mls/hr IV NOW STA Stop: 10/14/23 18:19 Last Infusion: 10/14/23 19:00 Dose: Infused Documented By: Admin: 10/14/23 18:30 Dose: 100 mls/hr Documented By: CAW Acetaminophen (Ofirmev) 1,000 mg in 100 mls @ 400 mls/hr IV NOW STA Stop: 10/14/23 18:05 Last Infusion: 10/14/23 18:45 Dose: Infused Documented By: Admin: 10/14/23 18:30 Dose: 400 mls/hr Documented By: CAW Sodium Chloride (Nss) 1,000 mls @ 999 mls/hr IV .Q1H1M ONE Stop: 10/14/23 21:02 Last Admin: 10/14/23 20:18 Dose: 999 mls/hr Documented By: KAROL Ioversol (Optiray 320 100ml) 92 ml IV ONCE ONE Stop: 10/14/23 16:05 Last Admin: 10/14/23 16:05 Dose: 92 ml Documented By: PABLO Imaging Data Radiologist's Impression: Chest X-Ray 10/14/23 12:22 XR chest 1V not portable HISTORY: weakness COMPARISON: None. FINDINGS: No pneumothorax. No pleural effusions. There are low lung volumes. Small left basilar linear densities favor subsegmental atelectasis or scarring. Otherwise, the lungs are clear. No evidence for pulmonary edema. The cardiac silhouette is top normal in size. There are calcifications within the aortic knob. No acute fractures identified. IMPRESSION: No acute process. ACT 112: Negative or not required by law. Electronically signed by: Aravind White M.D. 10/14/2023 2:18 PM Abdomen/Pelvis CT 10/14/23 15:[address] WITH IV CONTRAST CT DOSE: 1387.71 mGy.cm HISTORY: fever, leukocytosis, ?UTI TECHNIQUE: Multiaxial CT images of the abdomen and pelvis were performed following the use of intravenous contrast. A dose lowering technique was utilized adhering to the principles of ALARA. COMPARISON STUDY: None. FINDINGS: A few bibasilar linear densities favor subsegmental atelectasis or scarring. No pneumoperitoneum. No pneumatosis. No acute fractures identified. There is a tiny hiatus hernia. There are few subcentimeter distal paraesophageal lymph nodes measuring up to 8 mm. These are of uncertain clinical significance. Tiny fat-containing midline supraumbilical hernia. Mild hepatic steatosis. The main portal vein is patent. The gallbladder, pancreas, and adrenal glands are unremarkable. There are 2 hypodense lesions within the splenic dome the largest measuring 1.9 cm. This demonstrates a small amount of peripheral calcification. These are statistically benign and may represent splenic cysts. There are few subcentimeter bilateral renal hypodense lesions. These are to be too small to characterize but statistically represent cysts. Otherwise, the kidneys enhance normally. No hydronephrosis. Calcified plaque within the normal caliber abdominal aorta. No retroperitoneal lymphadenopathy. A few subcentimeter external iliac lymph nodes do not meet CT criteria for pathologic involvement. Normal bladder. Prior hysterectomy and appendectomy. Mild pelvic floor collapse is noted. No bowel wall thickening or obstruction. Colonic diverticulosis. No evidence for acute diverticulitis. IMPRESSION: 1. No bowel wall thickening or obstruction. 2. Colonic diverticulosis. No evidence for acute diverticulitis. 3. Prior hysterectomy and appendectomy. 4. No bladder wall thickening. 5. Hepatic steatosis. 6. A few prominent distal paraesophageal lymph nodes measuring up to 8 mm. These are of uncertain clinical significance. ACT 112: Negative or not required by law. Electronically signed by: Aravind White M.D. 10/14/2023 4:23 PM Knee X-Ray 10/14/23 17:52 RIGHT KNEE 2 VIEWS CLINICAL HISTORY: Right knee pain and swelling. Fever. FINDINGS: AP and crosstable lateral views of the right knee are compared to study dated 04/17/2023. The skeletal structures are osteopenic. No fracture is seen. A right knee arthroplasty is in near anatomic alignment. There has been undersurface remodeling of the patella. No periprosthetic lucency is identified. There is a moderate to large joint effusion which is new from 04/17/2023. Soft tissue swelling is seen around the knee. IMPRESSION: 1. Soft tissue swelling with no acute bony abnormality identified. 2. There is a moderate to large joint effusion which is new from 04/17/2023. Correlate clinically. 3. A right knee arthroplasty is in near anatomic alignment. Electronically signed by: Almas Clement M.D. 10/14/2023 7:16 PM Knee X-Ray 10/14/23 17:52 LEFT KNEE 2 VIEWS CLINICAL HISTORY: Left knee pain and swelling. FINDINGS: AP and crosstable lateral views of the left knee are compared to study dated 04/17/2023. The skeletal structures are osteopenic. No fracture is seen. A left knee arthroplasty is in near anatomic alignment. There has been undersurface remodeling of the patella. No periprosthetic lucency is identified. There is a large joint effusion which is new from 04/17/2023. Soft tissue swelling is seen around the knee. IMPRESSION: 1. Soft tissue swelling with no acute bony abnormality identified. 2. There is a large joint effusion which is new from 04/17/2023. Correlate clinically. 3. A left knee arthroplasty is in near anatomic alignment. Electronically signed by: Almas Clement M.D. 10/14/2023 7:07 PM Discharge Plan Visit Data Chief Complaint: Illness Stated Complaint: FEVER, FALL THIS MORNING, TROUBLE WALKING ED Provider: Mike Amaro Discharge Problem: Sepsis, History of bilateral knee replacement, History of UTI, Bilateral knee effusions, Leukocytosis Discharge Instructions Interventions: ED Discharge Assessment Last Done: 10/14/23 21:49 Discharge Problem: Sepsis Qualifiers: Sepsis type: sepsis due to unspecified organism Sepsis acute organ dysfunction status: unspecified Qualified Code(s): A41.9 - Sepsis, unspecified organism Leukocytosis Qualifiers: Leukocytosis type: bandemia Qualified Code(s): D72.825 - Bandemia
[2023-10-14] MEDS: OPTIRAY 320 100ml IV ONE (16:05)
--- NOTE | 2023-10-14 16:25 | CT Scan Report ---
ABDOMEN AND PELVIS CT WITH IV CONTRAST CT DOSE: 1387.71 mGy.cm HISTORY: fever, leukocytosis, ?UTI TECHNIQUE: Multiaxial CT images of the abdomen and pelvis were performed following the use of intrave nous contrast. A dose lowering technique was utilized adhering to the principles of ALARA. COMPARISON STUDY: None. FINDINGS: A few bibasilar linear densities favor subsegmental atelectasis or scarring. No pneumoperit oneum. No pneumatosis. No acute fractures identified. There is a tiny hiatus hernia. There are few garcia bcentimeter distal paraesophageal lymph nodes measuring up to 8 mm. These are of uncertain clinical s ignificance. Tiny fat-containing midline supraumbilical hernia. Mild hepatic steatosis. The main port al vein is patent. The gallbladder, pancreas, and adrenal glands are unremarkable. There are 2 hypode nse lesions within the splenic dome the largest measuring 1.9 cm. This demonstrates a small amount of peripheral calcification. These are statistically benign and may represent splenic cysts. There are few subcentimeter bilateral renal hypodense lesions. These are to be too small to characterize but st atistically represent cysts. Otherwise, the kidneys enhance normally. No hydronephrosis. Calcified pl aque within the normal caliber abdominal aorta. No retroperitoneal lymphadenopathy. A few subcentimet er external iliac lymph nodes do not meet CT criteria for pathologic involvement. Normal bladder. Elizabeth or hysterectomy and appendectomy. Mild pelvic floor collapse is noted. No bowel wall thickening or ob struction. Colonic diverticulosis. No evidence for acute diverticulitis. IMPRESSION: 1. No bowel wall thickening or obstruction. 2. Colonic diverticulosis. No evidence for acute diverticulitis. 3. Prior hysterectomy and appendectomy. 4. No bladder wall thickening. 5. Hepatic steatosis. 6. A few prominent distal paraesophageal lymph nodes measuring up to 8 mm. These are of uncertain cli nical significance. ACT 112: Negative or not required by law. Electronically signed by: Aravind White M.D. 10/14/2023 4:23 PM
[2023-10-14] MEDS: SODIUM CHLORIDE 0.9% 1,000 ML IV ONE ×2 (16:42→20:18)
[2023-10-14 17:42] LABS: Adenovirus PCR Not Detected (NotDetected); Bordetella parapertussis PCR Not Detected (NotDetected); Bordetella pertussis PCR Not Detected (NotDetected); Chlamydia pneumoniae PCR Not Detected (NotDetected); Coronavirus 229E PCR Not Detected (NotDetected); Coronavirus CoV-2 (COVID19)PCR Not Detected (NotDetected); Coronavirus HKU1 PCR Not Detected (NotDetected); Coronavirus NL63 PCR Not Detected (NotDetected); Coronavirus OC43PCR Not Detected (NotDetected); Human Metapneumovirus PCR Not Detected (NotDetected); Influenza A PCR Not Detected (NotDetected); Influenza B PCR Not Detected (NotDetected); Mycoplasma pneumoniae PCR Not Detected (NotDetected); Parainfluenza Virus 1 PCR Not Detected (NotDetected); Parainfluenza Virus 2 PCR Not Detected (NotDetected); Parainfluenza Virus 3 PCR Not Detected (NotDetected); Parainfluenza Virus 4 PCR Not Detected (NotDetected); Respiratory Syncytial VirusPCR Not Detected (NotDetected); Rhinovirus/Enterovirus PCR Not Detected (NotDetected)
[2023-10-14 18:21] LABS: C Reactive Protein 27.87 mg/dl (0-0.5); Creatine Kinase 31 U/L (26-192)
[2023-10-14] MEDS: ACETAMINOPHEN 1,000 MG/100 ML VIAL IV STA (18:30)
[2023-10-14] MEDS: cefTRIAXone SODIUM 2,000 MG/50 ML BAG IV STA (18:30)
[2023-10-14 18:47] LABS: Echinocytes 1+; Toxic Vacuolation 3+
[2023-10-14 19:05] LABS: Appearance Urine Clear (Clear); Bacteria Urine Automated Negative (Negative); Bilirubin Urine Negative (Negative); Blood Urine Negative (Negative); Color Urine Dark Yellow; Epithelial Cell Urine Auto >30 /lpf (0-5); Glucose Urine UA Negative (Negative); Ketones Urine Trace (Negative); Leukocyte Esterase Urine Negative (Negative); Nitrite Urine Negative (Negative); Protein Urine 1+ (Negative); RBC Urine Automated 0-4 /hpf (0-4); Specific Gravity Urine > 1.045 (1.000-1.030); Urobilinogen Urine Negative (Negative)
--- NOTE | 2023-10-14 19:08 | XRay Report ---
LEFT KNEE 2 VIEWS CLINICAL HISTORY: Left knee pain and swelling. FINDINGS: AP and crosstable lateral views of the left knee are compared to study dated 04/17/2023. The skeletal structures are osteopenic. No fracture is seen. A left knee arthroplasty is in near anatomi c alignment. There has been undersurface remodeling of the patella. No periprosthetic lucency is iden tified. There is a large joint effusion which is new from 04/17/2023. Soft tissue swelling is seen mamta und the knee. IMPRESSION: 1. Soft tissue swelling with no acute bony abnormality identified. 2. There is a large joint effusion which is new from 04/17/2023. Correlate clinically. 3. A left knee arthroplasty is in near anatomic alignment. Electronically signed by: Almas Clement M.D. 10/14/2023 7:07 PM
--- NOTE | 2023-10-14 19:18 | XRay Report ---
RIGHT KNEE 2 VIEWS CLINICAL HISTORY: Right knee pain and swelling. Fever. FINDINGS: AP and crosstable lateral views of the right knee are compared to study dated 04/17/2023. Th e skeletal structures are osteopenic. No fracture is seen. A right knee arthroplasty is in near anato kapil alignment. There has been undersurface remodeling of the patella. No periprosthetic lucency is id entified. There is a moderate to large joint effusion which is new from 04/17/2023. Soft tissue swelli ng is seen around the knee. IMPRESSION: 1. Soft tissue swelling with no acute bony abnormality identified. 2. There is a moderate to large joint effusion which is new from 04/17/2023. Correlate clinically. 3. A right knee arthroplasty is in near anatomic alignment. Electronically signed by: Almas Clement M.D. 10/14/2023 7:16 PM
[2023-10-14 19:28] LABS: Amorphous Sediment Urine Present (None Prsent)
[2023-10-14] MEDS: DOXYCYCLINE HYCLATE 100 MG in DEXTROSE 5% MINI-B 100 ML IV STA (20:18)
[2023-10-14] MEDS: DAPTOmycin 350 MG in SYRINGE 0 ML IV SCH (20:18)
--- NOTE | 2023-10-14 20:50 | History & Physical Report ---
Date of Service October 14, 2023 Assessment & Plan (1) Bilateral knee effusions: (2) History of UTI: (3) History of bilateral knee replacement: (4) LPRD (laryngopharyngeal reflux disease): (5) Dyslipidemia: (6) Hypertension: (7) Type 2 diabetes mellitus: (8) Hypothyroid: Plan 67-year-old woman with a past medical history of neuropathy, fibromyalgia, arthritis, remote history of bilateral knee replacements, sacroiliitis, hypertension, hyperlipidemia, diabetes who presents with fevers, weakness, and ambulatory difficulty due to bilateral knee pain and swelling. Given recent UTI, suspect this may have been source for current presentation, with concern for bacteremia and seeding of prosthetic joints. Bilateral knee effusion // H/o bilateral TKA: - Blood and urine cultures drawn, results pending - Empiric antibiotics - Daptomycin and Cefepime - Patient given one dose of Doxycycline in ED due to concern for Lyme, Lyme screen negative - Ortho consulted, joint aspiration deferred at this time per recommendation - NPO at midnight T2DM: - Home antihyperglycemics held - Blood glucose check ACHS, sliding scale insulin HLD: - Atorvastatin held due to concern for interaction with Daptomycin HTN: - Continue home amlodipine-olmesartan Hypothyroidism: - Continue home levothyroxine Migraines: - Continue home Topamax and prn Fioricet Dispo: Admit to Med-tele FEN/GI: Carb consistent, NPO @midnight VTE ppx: held pending ortho evaluation History of Present Illness Primary Care Provider: Deborah Owen MD 67-year-old woman with a past medical history of neuropathy, fibromyalgia, art hritis, remote history of bilateral knee replacements, sacroiliitis, hypertension, hyperlipidemia, diabetes who presents with fevers, weakness, and ambulatory difficulty due to bilateral knee pain and swelling. Patient states that symptoms started yesterday, had general feeling of malaise and fevers with Tmax 102.6. Also notes feeling generally tired and weak, began having difficulty walking. At baseline, patient able to ambulate independently without assistance but has struggled with weightbearing for past day. Patient reports that she had a recent UTI, completed course of abx though unsure which antibiotic she was given. Since then, denies urinary sx, no dysuria or urinary frequency. Apart from recent UTI, denies recent illness. Denies known tick bites. Denies prior history of joint infections. ED Course: Labs significant for WBC 18, ESR 38, CRP 28, Procal 6.3, lactate 3.1 UA negative, CXR negative, respiratory biofire negative XR knee significant for large bilateral effusions Blood and urine cultures drawn Given Ceftriaxone x1, Doxycycline x1 Started on Daptomycin Allergies Allergy/AdvReac Type Severity Reaction Status Date / Time No Known Allergies Allergy Verified 08/06/23 14:27 Home Medications Medication Instructions Recorded Confirmed Type fexofenadine 180 mg tablet 180 mg PO BID 04/17/20 10/14/23 History (Ivon Allergy) epinephrine 0.3 mg/0.3 mL 0.3 mg (0.3 mL) IM Q20M PRN 08/26/22 10/14/23 Rx injection, auto-injector anaphylaxis #2 ea alpha lipoic acid 600 mg tablet 600 mg PO QAM 12/25/22 10/14/23 History amlodipine 5 mg-olmesartan 40 mg 1 tab PO HS 12/25/22 10/14/23 History tablet cholecalciferol (vitamin D3) 125 125 mcg PO QAM 12/25/22 10/14/23 History mcg (5,000 unit) capsule omeprazole 20 mg capsule,delayed 20 mg PO QPM 12/25/22 10/14/23 History release omalizumab 150 mg/mL subcutaneous 300 mg (2 mL) subcut .COMPLEX #2 mL 01/10/23 10/14/23 Rx syringe (Xolair) atorvastatin 40 mg tablet 40 mg PO HS #90 tabs 04/21/23 10/14/23 Rx famotidine 40 mg tablet 40 mg PO BID #180 tabs 04/30/23 10/14/23 Rx levothyroxine 125 mcg tablet 125 mcg PO QAM #90 tabs 05/12/23 10/14/23 Rx (Synthroid) metoprolol succinate 100 mg 100 mg PO QAM #90 tabs 07/02/23 10/14/23 Rx tablet,extended release 24 hr [id number]-qzeahozwhejnm-grlvbdbf 1 tab PO BID PRN headache #10 tabs 08/06/23 10/14/23 Rx 50 mg-325 mg-40 mg tablet doxepin 100 mg capsule 100 mg PO HS #90 caps 08/06/23 10/14/23 Rx topiramate 25 mg tablet (Topamax) 25 mg PO BID #180 tabs 08/06/23 10/14/23 Rx metformin 500 mg tablet,extended 1,000 mg (2 x 500 mg) PO BID #360 08/19/23 10/14/23 Rx release 24 hr tabs dulaglutide 0.75 mg/0.5 mL 0.75 mg (0.5 mL) subcut WK #6 mL 10/01/23 10/14/23 Rx subcutaneous pen injector (Trulicity) Past Med/Surg History Medical History Migraine without aura, not intractable, without status migrainosus History of COVID-19 6 months ago in 2021, tested thru [facility], not hosp; cough, "feeling crappy," fever, loss taste>resolved w/exception of altered taste GERD without esophagitis Fibromyalgia Sacroiliitis Obesity (BMI 30-39.9) Frequent PVCs History of adverse effect of anesthesia Pt states she will lose some of her hair a few weeks after anesthesia Abdominal adhesions PT REPORTS D/T ABDOMINAL ADHESIONS RECEIVED MORE OF A GENERAL ANESTHESIA WITH PRIOR COLONOSCOPIES PT DENIES HX OF ANESTHESIA REACTION(S) Back problem AGE RELATED DEGENERATION Stage 3 chronic kidney disease "never an official diagnosis, numbers had gone up due to NSAID use" History of colonic polyps BENIGN PVCs (premature ventricular contractions) asymptomatic; f/u PCP Migraines hx Hypothyroid Hiatal hernia Acid reflux Angioedema "idiopathic" - follows Dr. Casanova STRESS TRIGGERS; certain things can cause this to trigger and make her cough and throat swell (swelling usually takes 6-8 hours) Diverticulosis hx Environmental allergies HX COUGH VARIANT ASTHMA D/T CLEANING SOLUTION AMPHYL ? REMOTE HX, NO CURRENT OR FURTHER PROBLEMS WITH Type 2 diabetes mellitus Hypertension Dyslipidemia Neuropathy Chronic idiopathic urticaria Surgical History History of endoscopy History of total bilateral knee replacement History of gynecologic surgery MULTIPLE History of colonoscopy History of oophorectomy History of hysterectomy History of appendectomy Family History Family/Other Cancer Hypertension Mother Allergies Sinusitis Stroke Breast cancer Father Diabetes Family history of bladder cancer Sister Diabetes Social History Smoking Status: Never smoker Second Hand Exposure: No; Do You Dip or Chew Tobacco: No; Hx Alcohol Use: Yes Hx Substance Use: No Preferred Language: Gambian Communication Ability: Effective 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 No acute distress Cardiac: +tachycardia Respiratory: No increased work of breathing Abdominal: Non-tender, non-distended. MSK: +bilateral knee swelling, non-tender to palpation, +superficial erythematous rash on anterior aspect of knees bilaterally Results & Data Results & Data Vital Signs (Past 12 Hours) Vital Signs Temp Pulse Pulse Resp BP BP Pulse Ox 10/14/23 18:00 37.1 C 10/14/23 18:00 37.1 C 111 H 20 127/88 96 10/14/23 16:17 36.8 C 113 H 20 133/71 96 10/14/23 12:18 36.6 C 100 H 20 106/71 94 O2 Del Method 10/14/23 18:00 10/14/23 18:00 Room Air 10/14/23 16:17 Room Air 10/14/23 12:18 Room Air Supervising Physician Co-Signing Physician Notes Attending addendum: I have physically seen this patient, have supervised the medical residents activities, and agree with the H&P unless as otherwise noted. Assessment and Plan: Bilateral knee effusions/distant bilateral TKAs- ED is consulted with on-call orthopedics over the phone N.p.o. after midnight for possible procedure tomorrow Daptomycin IV and cefepime IV empirically Lyme testing negative and anaplasmosis/babesiosis smears negative with antibodies pending Patient did receive a single dose of doxycycline from the ED Orthopedic surgery Dr. Gomez consulted Diabetes mellitus- Hold dulaglutide and metformin Placed on Accu-Cheks with NovoLog SSI Hypertension- Continue amlodipine/losartan with hold parameters Remaining orders and notations as noted Resident Activity Tracking Resident Involvement: Resident Care Provided Care Provided: Adult [facility]
[2023-10-14] MEDS ORDERED: DEXTROSE 50% 50 ML SYRINGE IV PRN (21:48)
[2023-10-14] MEDS ORDERED: MELATONIN 3 MG TAB PO PRN (21:48)
[2023-10-14] MEDS ORDERED: GLUCOSE 10 TAB/TUBE PO PRN (21:48)
[2023-10-14] MEDS ORDERED: GLUCAGON FOR INJ 1 MG VIAL SQ PRN (21:48)
[2023-10-14] MEDS ORDERED: GLUCOSE 40% GEL 15 GM TUBE PO PRN (21:48)
[2023-10-14] MEDS ORDERED: POLYETHYLENE (MIRALAX) 17 GM PACK PO PRN (21:48)
[2023-10-14] MEDS ORDERED: CARBOHYDRATES FOR HYPOGLYCEMIA PO PRN (21:48)
[2023-10-14] MEDS: PANTOprazole 40 MG TAB PO SCH (22:42)
[2023-10-14] MEDS: DOXEPIN HCL 50 MG CAPSULE PO SCH (22:42)
[2023-10-14] MEDS: amLODIPine BESYLATE 5 MG TAB PO SCH (22:42)
[2023-10-14] MEDS: IBUPROFEN 200 MG/10 ML UDC PO STA (22:43)
[2023-10-14] MEDS: LOSARTAN POTASSIUM 50 MG TAB PO SCH (22:44)
[2023-10-14] MEDS: CEFEPIME 2,000 MG in SYRINGE 0 ML IV SCH (22:46)
[2023-10-14] MEDS: INSULIN ASPART PER UNIT CHARGE SC SCH (23:10)
[2023-10-15] MEDS: FAMOTIDINE 40 MG TABLET PO SCH (00:47)
[2023-10-15] MEDS: TOPIRAMATE 25 MG TAB PO SCH (00:47)
[2023-10-15] MEDS: FEXOFENADINE HCL 180 MG TAB PO SCH (00:47)
[2023-10-15] MEDS: SODIUM CHLORIDE 0.9% 500 ML IV ONE (01:45)
[2023-10-15] MEDS: ALBUMIN 5% 250 ML IV PRN (02:15)
[2023-10-15] MEDS: LEVOTHYROXINE SODIUM 125 MCG TABLET PO SCH (09:09)
[2023-10-15] MEDS: ACETAMINOPHEN 325 MG TAB PO PRN (09:41)
[2023-10-15] MEDS: METOPROLOL SUCC 50MG EXT REL TAB PO SCH (09:46)
[2023-10-15] MEDS ORDERED: HYDROmorphone INJ 1 MG/ML SYRINGE IV PRN ×2 (09:48→10:18)
[2023-10-15] MEDS ORDERED: HYDROmorphone INJ 0.5 MG/0.5 ML SYR IV PRN (10:16)
--- NOTE | 2023-10-15 10:21 | Hospitalist Progress Note ---
Date of Service October 15, 2023 Assessment & Plan (1) Bilateral knee effusions: Plan: -Patient has bilateral knee effusion, erythema, difficulty ambulating, history of fever, and history of bilateral knee replacements years ago -Lyme screen negative -Patient NPO since midnight -Blood and urine cultures drawn, results pending -Ortho consulted, joint aspiration deferred in ED per recommendation * Continue empiric antibiotics- Daptomycin and Cefepime * Consult Orthopedics for potential joint aspiration (2) Type 2 diabetes mellitus: Plan: -Home antihyperglycemics held -Blood glucose check ACHS, sliding scale insulin (3) Hyperlipidemia: Plan: -Continue to hold Atorvastatin due to concern for interaction with Daptomycin (4) Hypertension: Plan: -Continue home amlodipine-olmesartan (5) Hypothyroid: Plan: -Continue home levothyroxine (6) Migraines: Plan: -Continue home Topamax and prn Fioricet Admission and Anticipated Discharge Date Admission Date: October 14, 2023 Supervising Physician Co-Signing Physician Notes ATTESTATION I also saw the patient and confirmed villalba portions of the history and exam. I agree with the impression and plan in the medical student/resident documentation, with exceptions clarifications as noted below. 67-year-old female who is nearly two decades status post bilateral knee replacements presents to the hospital following a 48-hour history of generalized weakness and significant/debilitating knee pain. She reports that for the last several weeks, off and on, she had very mild UTI-like symptoms. About a week ago she went to a urgent care facility and reports that a urinalysis and culture was taken and she was treated with an antibiotic for 5 days (she is unsure of the culture results and cannot recall the name of the antibiotic which she took). The UTI symptoms resolved, but on Friday of this week she began to feel a little "off." Friday into Friday she developed knee pain with difficulty walking. It reached the point where she had difficulty getting back into bed, she slid to the floor, after which time family brought her to the emergency department. Past medical history, among other things, is significant for idiopathic angioedema for which she is on Xolair, Ivon, and Pepcid. This morning, the patient remains in the emergency department awaiting a bed. She feels slightly better, although is still unable to ambulate. EXAM 92/54, 102, 18, 36.9, 93% on room air She is alert and oriented. No distress appreciated. Hemodynamically stable. HEENT grossly unremarkable; neck is supple Heart is tachycardic but regular Lungs are clear with nonlabored respirations Abdomen is soft and nontender Upon palpation, minimally tender knees bilaterally; palpable effusion; she does have a blotchy erythematous rash along the knee scars bilaterally. The knees themselves generally felt warm. She is able to do a straight leg raise bilaterally. Knee flexion is limited to about 60 degrees secondary to pain. DATA Labs White blood cell count 18.33, platelet count 210 ESR 38, CRP 27.87 Lactate 3.4 procalcitonin 6.26 Lyme and other tickborne panel pending Imaging Knee x-rays demonstrate bilateral joint effusions. CT scan abdomen pelvis is rather unremarkable for acute findings. Is mention of a few prominent distal paraesophageal lymph nodes measuring up to 8 mm of uncertain clinical significance. Chest x-ray shows no acute process. Micro Blood cultures drawn 10/14/2023 are pending Urine culture collected 10/14/2023 shows no growth, less than 1000 colonies. IMPRESSION & PLAN Bilateral knee effusions, uncertain etiology; possible septic arthritis of bilateral knee joints, versus allergic/autoimmune phenomena History of recent UTI, status post p.o. antibiotics with resolution of symptoms Remote history of bilateral knee replacement History idiopathic angioedema It is not clear if her bilateral knee symptoms are bacterial; certainly elevated CBC, elevated procalcitonin, and lactate level consistent with bacterial infection, however her presentation (bilateral, symmetrical) is somewhat unusual; would also be unusual to see a concurrent cellulitis with bilateral joint infections, and that being said, the rash itself looks more blotchy and the skin changes I would associate with a cellulitis. Given her history of idiopathic angioedema, reached out to her mechanical systems designer for consultation and discussed the case with orthopedics. Check C4 level and tryptase level Empiric trial Solu-Medrol 125 mg IV Continue current antibiotics pending culture results. Will reach out to urgent care facility to get ready results of previous urine culture and identify antibiotic she took. Trend CBC and inflammatory markers, though both will be affected by the steroids. Orthopedics has drained both knees; will check Gram stain, culture, and joselo ls. She looks hemodynamically stable, so we will continue maintenance fluids until p.o. improves. Repeat lactate level with upcoming labs Additional per resident documentation Subjective Today, patient states that she feels no pain in her knees unless they are palpated, however, she is unable to ambulate independently without assistance. She mentions that the bilateral hand numbness has alleviated. Review of Systems Review of Systems: All systems reviewed & are unremarkable except as noted in HPI & below Physical Exam Physical Exam: Constitutional: Alert and oriented. No acute distress HEENT: PERRL, EOMI, dry mucous membranes, oropharynx. Neck: supple. No JVD. No bruits. Thyroid normal, trachea midline, no adenopathy. Heart: normal S1 and S2. No murmurs, rubs or gallops. No pedal edema Lungs: clear to auscultation bilaterally, breath sounds equal, no respiratory distress Abdomen: soft, non-tender, non-distended. normal bowel sounds MSK: bilateral knee swelling, tenderness to palpation anteriorly and posteriorly Dermatologic: superficial erythematous rash on anterior aspect of knees bilaterally. Psychiatric: appropriate mood and congruent affect Results & Data Results & Data Vital Signs (Past 12 Hours) Vital Signs Temp Pulse Pulse Resp BP BP Pulse Ox 10/15/23 07:34 85 10/15/23 06:00 36.6 C 81 16 93/56 L 92 10/15/23 04:15 81 13 100/59 L 10/15/23 03:30 78 13 94/53 L 10/15/23 02:30 84 13 94/52 L 10/15/23 02:10 88 15 64/46 L 10/15/23 01:00 99 H 13 78/53 L 10/14/23 23:54 121 H 10/14/23 23:00 129 H 21 108/68 O2 Del Method 10/15/23 07:34 10/15/23 06:00 Room Air 10/15/23 04:15 10/15/23 03:30 10/15/23 02:30 10/15/23 02:10 10/15/23 01:00 10/14/23 23:54 10/14/23 23:00 Laboratory Results 10/15/23 10/14/23 10/14/23 09:05 22:42 21:44 WBC RBC Hgb Hct MCV MCH MCHC RDW Std Deviation RDW Coeff of Aliyah Plt Count MPV Immature Gran % (Auto) Neut % (Auto) Lymph % (Auto) Hopkins % (Auto) Eos % (Auto) Baso % (Auto) Neut # (Auto) Lymph # (Auto) Hopkins # (Auto) Eos # (Auto) Baso # (Auto) Immature Gran # (Auto) Toxic Vacuolation Echinocytes ESR Sodium Potassium Chloride Carbon Dioxide Anion Gap BUN Creatinine Est Cr Clr Drug Dosing Est GFR ( Amer) Est GFR (Non-Af Amer) BUN/Creatinine Ratio Glucose POC Glucose 85 157 H Lactate 3.4 H* Calcium Total Bilirubin AST ALT Alkaline Phosphatase Total Creatine Kinase C-Reactive Protein Total Protein Albumin Globulin Albumin/Globulin Ratio Procalcitonin Urine Color Urine Appearance Urine pH Ur Specific Melrose Urine Protein Urine Glucose (UA) Urine Ketones Urine Blood Urine Nitrite Urine Bilirubin Urine Urobilinogen Ur Leukocyte Esterase Urine WBC (Auto) Urine RBC (Auto) U Hyaline Cast (Auto) U Epithel Cells (Auto) Urine Bacteria (Auto) Amorphous Sediment Urine Yeast Adenovirus (PCR) Anaplasma Smear Babesia Smear B. pertussis DNA (PCR) B.parapertussis DNA PCR Lyme Disease Screen C. pneumoniae DNA (PCR) Coronavirus OC43 (PCR) Coronavirus HKU1 (PCR) Coronavirus 229E (PCR) SARS-CoV-2 (PCR) Coronavirus NL63 (PCR) Human Metapneumovir PCR Influenza Type A (PCR) Influenza Type B (PCR) M. pneumoniae (PCR) Parainfluenza 1 (PCR) Parainfluenza 2 (PCR) Parainfluenza 3 (PCR) Parainfluenza 4 (PCR) RSV (PCR) Entero/Rhino (PCR) 10/14/23 10/14/23 10/14/23 19:23 18:06 17:52 WBC RBC Hgb Hct MCV MCH MCHC RDW Std Deviation RDW Coeff of Aliyah Plt Count MPV Immature Gran % (Auto) Neut % (Auto) Lymph % (Auto) Hopkins % (Auto) Eos % (Auto) Baso % (Auto) Neut # (Auto) Lymph # (Auto) Hopkins # (Auto) Eos # (Auto) Baso # (Auto) Immature Gran # (Auto) Toxic Vacuolation Echinocytes ESR Sodium Potassium Chloride Carbon Dioxide Anion Gap BUN Creatinine Est Cr Clr Drug Dosing Est GFR ( Amer) Est GFR (Non-Af Amer) BUN/Creatinine Ratio Glucose POC Glucose Lactate 3.1 H* Calcium Total Bilirubin AST ALT Alkaline Phosphatase Total Creatine Kinase C-Reactive Protein Total Protein Albumin Globulin Albumin/Globulin Ratio Procalcitonin Urine Color Dark Yellow Urine Appearance Clear Urine pH 5.0 Ur Specific Melrose > 1.045 H Urine Protein 1+ H Urine Glucose (UA) Negative Urine Ketones Trace H Urine Blood Negative Urine Nitrite Negative Urine Bilirubin Negative Urine Urobilinogen Negative Ur Leukocyte Esterase Negative Urine WBC (Auto) 1-5 Urine RBC (Auto) 0-4 U Hyaline Cast (Auto) 10-30 H U Epithel Cells (Auto) >30 H Urine Bacteria (Auto) Negative Amorphous Sediment Present A Urine Yeast Not Reportable Adenovirus (PCR) Anaplasma Smear Babesia Smear B. pertussis DNA (PCR) B.parapertussis DNA PCR Lyme Disease Screen Negative C. pneumoniae DNA (PCR) Coronavirus OC43 (PCR) Coronavirus HKU1 (PCR) Coronavirus 229E (PCR) SARS-CoV-2 (PCR) Coronavirus NL63 (PCR) Human Metapneumovir PCR Influenza Type A (PCR) Influenza Type B (PCR) M. pneumoniae (PCR) Parainfluenza 1 (PCR) Parainfluenza 2 (PCR) Parainfluenza 3 (PCR) Parainfluenza 4 (PCR) RSV (PCR) Entero/Rhino (PCR) 10/14/23 10/14/23 16:39 12:28 WBC 18.33 H RBC 4.50 Hgb 13.1 Hct 39.8 MCV 88.4 MCH 29.1 MCHC 32.9 RDW Std Deviation 46.5 H RDW Coeff of Aliyah 14.1 Plt Count 210 MPV 10.0 Immature Gran % (Auto) 1.2 Neut % (Auto) 85.9 Lymph % (Auto) 6.1 Hopkins % (Auto) 6.0 Eos % (Auto) 0.5 Baso % (Auto) 0.3 Neut # (Auto) 15.75 H Lymph # (Auto) 1.11 L Hopkins # (Auto) 1.10 H Eos # (Auto) 0.10 Baso # (Auto) 0.05 Immature Gran # (Auto) 0.22 H Toxic Vacuolation 3+ Echinocytes 1+ ESR 38 H Sodium 136 Potassium 3.6 Chloride 98 Carbon Dioxide 24 Anion Gap 14 H BUN 19 Creatinine 1.11 Est Cr Clr Drug Dosing Not Reportable Est GFR ( Amer) 60.4 Est GFR (Non-Af Amer) 52.1 BUN/Creatinine Ratio 17.1 Glucose 157 H POC Glucose Lactate Calcium 9.2 Total Bilirubin 1.1 H AST 13 ALT 17 Alkaline Phosphatase 33 L Total Creatine Kinase 31 C-Reactive Protein 27.87 H Total Protein 7.1 Albumin 4.4 Globulin 2.7 Albumin/Globulin Ratio 1.6 Procalcitonin 6.26 H Urine Color Urine Appearance Urine pH Ur Specific Melrose Urine Protein Urine Glucose (UA) Urine Ketones Urine Blood Urine Nitrite Urine Bilirubin Urine Urobilinogen Ur Leukocyte Esterase Urine WBC (Auto) Urine RBC (Auto) U Hyaline Cast (Auto) U Epithel Cells (Auto) Urine Bacteria (Auto) Amorphous Sediment Urine Yeast Adenovirus (PCR) Not Detected Anaplasma Smear See Comment Babesia Smear See Comment B. pertussis DNA (PCR) Not Detected B.parapertussis DNA PCR Not Detected Lyme Disease Screen C. pneumoniae DNA (PCR) Not Detected Coronavirus OC43 (PCR) Not Detected Coronavirus HKU1 (PCR) Not Detected Coronavirus 229E (PCR) Not Detected SARS-CoV-2 (PCR) Not Detected Coronavirus NL63 (PCR) Not Detected Human Metapneumovir PCR Not Detected Influenza Type A (PCR) Not Detected Influenza Type B (PCR) Not Detected M. pneumoniae (PCR) Not Detected Parainfluenza 1 (PCR) Not Detected Parainfluenza 2 (PCR) Not Detected Parainfluenza 3 (PCR) Not Detected Parainfluenza 4 (PCR) Not Detected RSV (PCR) Not Detected Entero/Rhino (PCR) Not Detected Diagnostic Findings Chest X-Ray 10/14/23 12:22 XR chest 1V not portable HISTORY: weakness COMPARISON: None. FINDINGS: No pneumothorax. No pleural effusions. There are low lung volumes. Small left basilar linear densities favor subsegmental atelectasis or scarring. Otherwise, the lungs are clear. No evidence for pulmonary edema. The cardiac silhouette is top normal in size. There are calcifications within the aortic knob. No acute fractures identified. IMPRESSION: No acute process. ACT 112: Negative or not required by law. Electronically signed by: Aravind White M.D. 10/14/2023 2:18 PM Abdomen/Pelvis CT 10/14/23 15:[address] WITH IV CONTRAST CT DOSE: 1387.71 mGy.cm HISTORY: fever, leukocytosis, ?UTI TECHNIQUE: Multiaxial CT images of the abdomen and pelvis were performed following the use of intravenous contrast. A dose lowering technique was utilized adhering to the principles of ALARA. COMPARISON STUDY: None. FINDINGS: A few bibasilar linear densities favor subsegmental atelectasis or scarring. No pneumoperitoneum. No pneumatosis. No acute fractures identified. There is a tiny hiatus hernia. There are few subcentimeter distal paraesophageal lymph nodes measuring up to 8 mm. These are of uncertain clinical significance. Tiny fat-containing midline supraumbilical hernia. Mild hepatic steatosis. The main portal vein is patent. The gallbladder, pancreas, and adrenal glands are unremarkable. There are 2 hypodense lesions within the splenic dome the largest measuring 1.9 cm. This demonstrates a small amount of peripheral calcification. These are statistically benign and may represent splenic cysts. There are few subcentimeter bilateral renal hypodense lesions. These are to be too small to characterize but statistically represent cysts. Otherwise, the kidneys enhance normally. No hydronephrosis. Calcified plaque within the normal caliber abdominal aorta. No retroperitoneal lymphadenopathy. A few subcentimeter ex ternal iliac lymph nodes do not meet CT criteria for pathologic involvement. Normal bladder. Prior hysterectomy and appendectomy. Mild pelvic floor collapse is noted. No bowel wall thickening or obstruction. Colonic diverticulosis. No evidence for acute diverticulitis. IMPRESSION: 1. No bowel wall thickening or obstruction. 2. Colonic diverticulosis. No evidence for acute diverticulitis. 3. Prior hysterectomy and appendectomy. 4. No bladder wall thickening. 5. Hepatic steatosis. 6. A few prominent distal paraesophageal lymph nodes measuring up to 8 mm. These are of uncertain clinical significance. ACT 112: Negative or not required by law. Electronically signed by: Aravind White M.D. 10/14/2023 4:23 PM Knee X-Ray 10/14/23 17:52 RIGHT KNEE 2 VIEWS CLINICAL HISTORY: Right knee pain and swelling. Fever. FINDINGS: AP and crosstable lateral views of the right knee are compared to study dated 04/17/2023. The skeletal structures are osteopenic. No fracture is seen. A right knee arthroplasty is in near anatomic alignment. There has been undersurface remodeling of the patella. No periprosthetic lucency is identified. There is a moderate to large joint effusion which is new from 04/17/2023. Soft tissue swelling is seen around the knee. IMPRESSION: 1. Soft tissue swelling with no acute bony abnormality identified. 2. There is a moderate to large joint effusion which is new from 04/17/2023. Correlate clinically. 3. A right knee arthroplasty is in near anatomic alignment. Electronically signed by: Almas Clement M.D. 10/14/2023 7:16 PM Knee X-Ray 10/14/23 17:52 LEFT KNEE 2 VIEWS CLINICAL HISTORY: Left knee pain and swelling. FINDINGS: AP and crosstable lateral views of the left knee are compared to study dated 04/17/2023. The skeletal structures are osteopenic. No fracture is seen. A left knee arthroplasty is in near anatomic alignment. There has been undersurface remodeling of the patella. No periprosthetic lucency is identified. There is a large joint effusion which is new from 04/17/2023. Soft tissue swelling is seen around the knee. IMPRESSION: 1. Soft tissue swelling with no acute bony abnormality identified. 2. There is a large joint effusion which is new from 04/17/2023. Correlate clinically. 3. A left knee arthroplasty is in near anatomic alignment. Electronically signed by: Almas Clement M.D. 10/14/2023 7:07 PM
[2023-10-15] MEDS: LACTATED RINGER'S 1,000 ML IV ONE (10:25)
[2023-10-15] MEDS: HYDROmorphone INJ 1 MG/ML SYRINGE IV STA (10:27)
[2023-10-15] MEDS: LACTATED RINGER'S 1,000 ML IV SCH (10:33)
--- NOTE | 2023-10-15 12:58 | Orthopedic Consultation ---
Date of Service October 15, 2023 Assessment & Plan (1) Bilateral knee effusions: 67-year-old female with history of some degree of autoimmune disease in the past now 19 years out from bilateral knee replacements with acute onset of knee effusions pain discomfort. She does have this unusual appearance to the skin in the front of her knees. Send the most concerning issue is infection. Other issues to be some type of inflammatory process such as gout, pseudogout, autoimmune disease. Not convinced that she is got bacterial infection at this point enough to consider surgical intervention. Plan: At this point we can aspirate both knees and sent them off for analysis. Will send off a stat Gram stain aerobic anaerobic culture and a cell count with a differential. I will do a crystal analysis as well as a Lyme test. Will see what that shows. Continue antibiotic management for now. May want to consider a trial of steroids. Procedure: Patient's right knee was prepped with alcohol. I aspirated the right knee for about 6 cc of slightly inflammatory fluid. Did not look purulent. This was sent off for analysis. The left knee was prepped with alcohol. Aspirated the left knee for similar received 60 cc of similar-appearing fluid. We sent this off for analysis as well. The patient tolerated the procedure well and no complications. (2) History of bilateral knee replacement: History of Present Illness Reason for Consultation: . Bilateral knee pain discomfort and swelling after total knee arthroplasty and limited mobility Requesting Physician: . Attending Physician: Ifeanyi Rodriguez DO . Patient is a 67-year-old female well-known to me from previous bilateral knee replacement done 19 years ago. She done quite well and we have been following every couple years. That really has not a problems with her knees. She developed some other medical issues but her knees are done pretty well. They have shown some signs of wear over time and a little bit of laxity. She did have a urinary tract infection several weeks ago which was treated. Over the past 48 hours she developed increased pain discomfort both knees as well as some swelling. She admitted to the hospital last night and were consulted for evaluation. She does have any pain at all while resting but has pain with at tempted motion. Allergies Allergy/AdvReac Type Severity Reaction Status Date / Time No Known Allergies Allergy Verified 08/06/23 14:27 Home Medications Medication Instructions Recorded Confirmed Type fexofenadine 180 mg tablet 180 mg PO BID 04/17/20 10/14/23 History (Ivon Allergy) epinephrine 0.3 mg/0.3 mL 0.3 mg (0.3 mL) IM Q20M PRN 08/26/22 10/14/23 Rx injection, auto-injector anaphylaxis #2 ea alpha lipoic acid 600 mg tablet 600 mg PO QAM 12/25/22 10/14/23 History amlodipine 5 mg-olmesartan 40 mg 1 tab PO HS 12/25/22 10/14/23 History tablet cholecalciferol (vitamin D3) 125 125 mcg PO QAM 12/25/22 10/14/23 History mcg (5,000 unit) capsule omeprazole 20 mg capsule,delayed 20 mg PO QPM 12/25/22 10/14/23 History release omalizumab 150 mg/mL subcutaneous 300 mg (2 mL) subcut .COMPLEX #2 mL 01/10/23 10/14/23 Rx syringe (Xolair) atorvastatin 40 mg tablet 40 mg PO HS #90 tabs 04/21/23 10/14/23 Rx famotidine 40 mg tablet 40 mg PO BID #180 tabs 04/30/23 10/14/23 Rx levothyroxine 125 mcg tablet 125 mcg PO QAM #90 tabs 05/12/23 10/14/23 Rx (Synthroid) metoprolol succinate 100 mg 100 mg PO QAM #90 tabs 07/02/23 10/14/23 Rx tablet,extended release 24 hr dausucgkbj-jqhaijtvpekyr-cspchuua 1 tab PO BID PRN headache #10 tabs 08/06/23 10/14/23 Rx 50 mg-325 mg-40 mg tablet doxepin 100 mg capsule 100 mg PO HS #90 caps 08/06/23 10/14/23 Rx topiramate 25 mg tablet (Topamax) 25 mg PO BID #180 tabs 08/06/23 10/14/23 Rx metformin 500 mg tablet,extended 1,000 mg (2 x 500 mg) PO BID #360 08/19/23 10/14/23 Rx release 24 hr tabs dulaglutide 0.75 mg/0.5 mL 0.75 mg (0.5 mL) subcut WK #6 mL 10/01/23 10/14/23 Rx subcutaneous pen injector (Trulicity) Past Med/Surg History Medical History Migraine without aura, not intractable, without status migrainosus History of COVID-19 6 months ago in 2021, tested thru [facility], not hosp; cough, "feeling crappy," fever, loss taste>resolved w/exception of altered taste GERD without esophagitis Fibromyalgia Sacroiliitis Obesity (BMI 30-39.9) Frequent PVCs History of adverse effect of anesthesia Pt states she will lose some of her hair a few weeks after anesthesia Abdominal adhesions PT REPORTS D/T ABDOMINAL ADHESIONS RECEIVED MORE OF A GENERAL ANESTHESIA WITH PRIOR COLONOSCOPIES PT DENIES HX OF ANESTHESIA REACTION(S) Back problem AGE RELATED DEGENERATION Stage 3 chronic kidney disease "never an official diagnosis, numbers had gone up due to NSAID use" History of colonic polyps BENIGN PVCs (premature ventricular contractions) asymptomatic; f/u PCP Migraines hx Hypothyroid Hiatal hernia Acid reflux Angioedema "idiopathic" - follows Dr. Casanova STRESS TRIGGERS; certain things can cause this to trigger and make her cough and throat swell (swelling usually takes 6-8 hours) Diverticulosis hx Environmental allergies HX COUGH VARIANT ASTHMA D/T CLEANING SOLUTION AMPHYL ? REMOTE HX, NO CURRENT OR FURTHER PROBLEMS WITH Type 2 diabetes mellitus Hypertension Dyslipidemia Neuropathy Chronic idiopathic urticaria Surgical History History of endoscopy History of total bilateral knee replacement History of gynecologic surgery MULTIPLE History of colonoscopy History of oophorectomy History of hysterectomy History of appendectomy Family History Family/Other Cancer Hypertension Mother Allergies Sinusitis Stroke Breast cancer Father Diabetes Family history of bladder cancer Sister Diabetes Social History Smoking Status: Never smoker Second Hand Exposure: No; Do You Dip or Chew Tobacco: No; Hx Alcohol Use: Yes Hx Substance Use: No Preferred Language: Wallisian Communication Ability: Effective Tooth Cutter Pinion Required: No Beliefs That Will Affect Care: None Current Living Situation: Spouse current occupational status: employed Other Information That Helps Us Care for You: No Feels Safe at Home: Yes Safety Concerns: Feels Safe At This Time Assistive Devices: None Review of Systems All systems reviewed & are unremarkable except as noted in HPI & below. Physical Exam . Physical examination is a pleasant middle-age female. Lying in bed looks pretty comfortable. Examination of both knees reveals a little bit of blotchy look to the front of both knees around the incision site prescribed the bilateral knee effusions. Examination the right knee reveals a moderate to large effusion. Range of motion 0 to about 80. She can do a straight leg raise. Examination left knee reveals the same blotchy appearance. Large knee effusion. She has difficulty doing a straight leg raise. No palpable defect. She is neurologically intact. Results & Data Results & Data Laboratory Results . White blood cell count elevated. Sed rate mildly elevated. CRP markedly elevated. Diagnostic Findings . X-rays of both knees reveal bilateral cemented knee replacement. Components look in acceptable position. No other signs of lucency or bone destruction. She does have large knee joint effusions on both sides. PG Care Time/CCT Total # of Minutes Spent Total Time Spent with Patient: Total time spent is greater than 50% in coordination of care (as documented) at patient's floor/unit and/or counseling patient: Coding Level of Care Code 28542 IN/OBS CONSULT LVL 3,45M Diagnoses Bilateral knee effusions M25.461; M25.462 History of bilateral knee replacement Z96.653
[2023-10-15 14:00] LABS: Appearance Synovial Fluid Cloudy; Color Synovial Fluid Yellow; Mononuclear WBC Synovial 61.6 %; Polynuclear WBC Synovial 38.4 %; RBC Synovial Fluid Auto 2000 /uL; Source Synovial Fluid Left Knee; WBC Synovial Fluid Auto 8478 /ul (0-200)
[2023-10-15 14:12] LABS: Appearance Synovial Fluid Cloudy; Color Synovial Fluid Yellow; RBC Synovial Fluid Auto 5000 /uL; Source Synovial Fluid Right Knee; WBC Synovial Fluid Auto 14485 /ul (0-200)
--- NOTE | 2023-10-15 15:01 | Allergy & Immunology Consult ---
Date of Consultation October 15, 2023 Assessment & Plan (1) Sepsis: (2) Bilateral knee effusions: Plan Patient presents today with bilateral knee swelling. There is a question about whether this could be related to angioedema.Fluid was aspirated from the knees bilaterally and Gram stains were unremarkable. Cultures are pending. At this point, I do not believe that the swelling is related to her underlying angioedema or urticaria. Patients with chronic urticaria can develop joint swelling, but these usually involve smaller joints like hands, fingers. In most cases, these occur in settings where the urticaria and angioedema are not well- controlled the patient has been getting frequent outbreaks. Her symptoms have been very well-controlled on Xolair. Furthermore, the most cases angioedema tends to be asymmetric and so the likelihood of angioedema causing the swelling that is similar bilaterally would be extremely low. Furthermore, angioedema typically does not involve leakage of fluid into the joint space. Usually the tissue above the knees get swollen and this can cause pain by pushing on the joint, but I would not expect that any fluid would be able to be aspirated from the joint in the setting. She also has significant elevation in white blood cell counts with a left shift, elevated lactate, elevated CRP, elevated procalcitonin. She also has been hypotensive and tachycardic. Usually we would not expect to see this with angioedema attacks. At this point my main suspicion would be infection and sepsis. Infections are a common trigger for urticaria and angioedema and while I do not believe that the knee swelling is due to this, it still is possible that she will develop hives or angioedema elsewhere and this can sometimes be misinterpreted as a drug allergy. I would recommend continuing the antihistamines, fexofenadine 180 mg p.o. twice daily and famotidine 40 mg p.o. twice daily. We discussed considering prednisone with the primary team and this would be fine from my standpoint. Typically, patients respond to 40 to 60 mg of prednisone per day and I would avoid going to doses higher than this because of risk of immunosuppression. She is also on doxepin 100 mg daily. This is a much higher dose than we normally does for hives. Usually, we used doses in the range of 10 mg to treat the urticaria. She says that this was titrated up because of lower extremity pain, possibly cellulitis. Given the potential of higher doses of this medication to affect heart rhythms and cause sedation, I would recommend holding it for now. Total time for today is 42 minutes which includes reviewing records prior to patient arrival, the [id number] visit, as well as time to record documentation after patient departure. History of Present Illness Attending Physician: Ifeanyi Rodriguez, History of Present Illness This is a 67-year-old female who presents with a history of chronic idiopathic urticaria/angioedema that presents to the emergency room with fevers, chills, bilateral knee pain with swelling, generalized malaise. She reported temperature as high as 102.6 F. She had significant difficulty ambulating because of the pain and swelling in the knee. She does relate a history of recent urinary tract infection status post a 5-day course of antibiotics. She completed the course and this seemed to resolve. She does not have any urinary symptoms. She has not had any other associated symptoms. Generally, the hives have been well-controlled. Allergies Allergy/AdvReac Type Severity Reaction Status Date / Time No Known Allergies Allergy Verified 08/06/23 14:27 Home Medications Medication Instructions Recorded Confirmed Type fexofenadine 180 mg tablet 180 mg PO BID 04/17/20 10/14/23 History ([facility] Allergy) epinephrine 0.3 mg/0.3 mL 0.3 mg (0.3 mL) IM Q20M PRN 08/26/22 10/14/23 Rx injection, auto-injector anaphylaxis #2 ea alpha lipoic acid 600 mg tablet 600 mg PO QAM 12/25/22 10/14/23 History amlodipine 5 mg-olmesartan 40 mg 1 tab PO HS 12/25/22 10/14/23 History tablet cholecalciferol (vitamin D3) 125 125 mcg PO QAM 12/25/22 10/14/23 History mcg (5,000 unit) capsule omeprazole 20 mg capsule,delayed 20 mg PO QPM 12/25/22 10/14/23 History release omalizumab 150 mg/mL subcutaneous 300 mg (2 mL) subcut .COMPLEX #2 mL 01/10/23 10/14/23 Rx syringe (Xolair) atorvastatin 40 mg tablet 40 mg PO HS #90 tabs 04/21/23 10/14/23 Rx famotidine 40 mg tablet 40 mg PO BID #180 tabs 04/30/23 10/14/23 Rx levothyroxine 125 mcg tablet 125 mcg PO QAM #90 tabs 05/12/23 10/14/23 Rx (Synthroid) metoprolol succinate 100 mg 100 mg PO QAM #90 tabs 07/02/23 10/14/23 Rx tablet,extended release 24 hr citykhjquh-vfwlvlxncpkao-avogrgui 1 tab PO BID PRN headache #10 tabs 08/06/23 10/14/23 Rx 50 mg-325 mg-40 mg tablet doxepin 100 mg capsule 100 mg PO HS #90 caps 08/06/23 10/14/23 Rx topiramate 25 mg tablet (Topamax) 25 mg PO BID #180 tabs 08/06/23 10/14/23 Rx metformin 500 mg tablet,extended 1,000 mg (2 x 500 mg) PO BID #360 08/19/23 10/14/23 Rx release 24 hr tabs dulaglutide 0.75 mg/0.5 mL 0.75 mg (0.5 mL) subcut WK #6 mL 10/01/23 10/14/23 Rx subcutaneous pen injector (Trulicity) Patient History Medical History Migraine without aura, not intractable, without status migrainosus History of COVID-19 6 months ago in 2021, tested thru [facility], not hosp; cough, "feeling crappy," fever, loss taste>resolved w/exception of altered taste GERD without esophagitis Fibromyalgia Sacroiliitis Obesity (BMI 30-39.9) Frequent PVCs History of adverse effect of anesthesia Pt states she will lose some of her hair a few weeks after anesthesia Abdominal adhesions PT REPORTS D/T ABDOMINAL ADHESIONS RECEIVED MORE OF A GENERAL ANESTHESIA WITH PRIOR COLONOSCOPIES PT DENIES HX OF ANESTHESIA REACTION(S) Back problem AGE RELATED DEGENERATION Stage 3 chronic kidney disease "never an official diagnosis, numbers had gone up due to NSAID use" History of colonic polyps BENIGN PVCs (premature ventricular contractions) asymptomatic; f/u PCP Migraines hx Hypothyroid Hiatal hernia Acid reflux Angioedema "idiopathic" - follows Dr. Casanova STRESS TRIGGERS; certain things can cause this to trigger and make her cough and throat swell (swelling usually takes 6-8 hours) Diverticulosis hx Environmental allergies HX COUGH VARIANT ASTHMA D/T CLEANING SOLUTION AMPHYL ? REMOTE HX, NO CURRENT OR FURTHER PROBLEMS WITH Type 2 diabetes mellitus Hypertension Dyslipidemia Neuropathy Chronic idiopathic urticaria Surgical History History of endoscopy History of total bilateral knee replacement History of gynecologic surgery MULTIPLE History of colonoscopy History of oophorectomy History of hysterectomy History of appendectomy Family History Family/Other Cancer Hypertension Mother Allergies Sinusitis Stroke Breast cancer Father Diabetes Family history of bladder cancer Sister Diabetes Social History Smoking Status: Never smoker Second Hand Exposure: No; Do You Dip or Chew Tobacco: No; Hx Alcohol Use: Yes Hx Substance Use: No Preferred Language: Uzbek Communication Ability: Effective 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 HEENT: as per HPI otherwise normal. Respiratory: as per HPI otherwise normal. Cardiovascular: all normal. Gastrointestinal: all normal. Skin: as per HPI otherwise normal. Endocrine: all normal. Hematologic: all normal. Musculoskeletal: all normal. Neurologic: all normal. Psychiatric: all normal. Vascular: all normal. Urinary: all normal. Physical Exam Constitutional: WD/WN, vitals as above Eyes: no conjunctival abnormality and sclerae not anicteric ENMT: external ear and nose normal, oropharynx normal Neck: trachea midline Respiratory: normal respiratory effort and able to speak in complete sentences; does not use accessory muscles Musculoskeletal: Head/Neck/Chest: head atraumatic Gait: normal gait Skin: + rash; no lesions There is erythema around the incision site on the knees bilaterally where she had her knee transplant. Area is warm to the touch and swollen. Psychiatric: A+Ox3, euthymic affect Results & Data Vital Signs (Past 12 Hours) Vital Signs Temp Pulse Pulse Resp BP BP Pulse Ox 10/15/23 13:36 36.9 C 102 H 18 92/54 L 93 10/15/23 12:57 10/15/23 07:34 85 10/15/23 06:00 36.6 C 81 16 93/56 L 92 10/15/23 04:15 81 13 100/59 L 10/15/23 03:30 78 13 94/53 L O2 Del Method 10/15/23 13:36 Room Air 10/15/23 12:57 Room Air 10/15/23 07:34 10/15/23 06:00 Room Air 10/15/23 04:15 10/15/23 03:30 Coding Level of Care Code 19731 INT INP/OBS CARE MIN Diagnoses Sepsis A41.9 Sepsis acute organ dysfunction status: unspecified Sepsis type: sepsis due to unspecified organism Bilateral knee effusions M25.461; M25.462 (1) Sepsis Sepsis acute organ dysfunction status: unspecified Sepsis type: sepsis due to unspecified organism Qualified Code(s): A41.9 - Sepsis, unspecified organism
[2023-10-15 15:38] LABS: Basophils # (auto) 0.03 K/uL (0.00-0.20); Basophils % (auto) 0.3 %; Eosinophils # (auto) 0.23 K/uL (0.00-0.50); Eosinophils % (auto) 2.4 %; Hematocrit (blood only) 30.8 % (37.0-47.0); Immature Granulocytes # (auto) 0.05 K/uL (0.01-0.20); Immature Granulocytes % (auto) 0.5 %; Lymphocytes # (auto) 1.22 K/uL (1.20-3.40); Lymphocytes % (auto) 12.5 %; Mean Corpuscular Hemoglobin 28.8 pg (25.0-34.0); Mean Corpuscular Hgb Conc 32.5 g/dL (32.0-36.0); Mean Corpuscular Volume 88.8 fL (80.0-100.0); Mean Platelet Volume 10.2 fL (9.4-12.4); Monocytes # (auto) 0.46 K/uL (0.11-0.59); Monocytes % (auto) 4.7 %; Neutrophils # (auto) 7.76 K/uL (1.40-6.50); Neutrophils % (auto) 79.6 %; Platelet Count 149 K/uL (130-400); RDW Coefficient of Variation 14.5 % (11.5-14.5); RDW Standard Deviation 46.6 fL (36.4-46.3); Red Blood Count 3.47 M/uL (4.20-5.40); White Blood Count 9.75 K/ul (4.8-10.8)
[2023-10-15 15:42] LABS: Albumin Globulin Ratio 1.4 (0.9-2); Albumin Level 3.3 gm/dl (3.4-5.0); BUN Creatinine Ratio 27.3 (10-20); Bilirubin,Total 0.6 mg/dl (0.2-1.0); Calcium 8.5 mg/dl (8.6-10.3); Creatinine Clr Calc Pharmacy 72.2 ml/min; Est GFR (African American) 79.9 ml/min; Est GFR (Non-African American) 68.9 ml/min; Globulin 2.3 gm/dl (2.5-4.0); Potassium 3.7 mmol/L (3.5-5.1); Total Protein 5.6 gm/dl (6.0-8.3); Uric Acid 5.4 mg/dl (2.6-7.2)
[2023-10-15 16:04] LABS: C Reactive Protein 42.38 mg/dl (0-0.5)
[2023-10-15] MEDS ORDERED: methylPREDNISolone 50 MG in SYRINGE 0 ML IV SCH (16:45)
[2023-10-15] MEDS ORDERED: methylPREDNISolone 60 MG in SYRINGE 0 ML IV SCH (16:45)
[2023-10-15] MEDS: methylPREDNISolone 50 MG in SYRINGE 0 ML IV ONE (18:11)
--- NOTE | 2023-10-15 19:47 | Billing Data ---
Date of Service October 15, 2023 Coding Level of Care Code 76353 INT INP/OBS CARE
[2023-10-15] MEDS: BUTALBITAL/ACETAMIN/CAFFEINE TAB PO PRN (22:18)
[2023-10-16 06:47] LABS: Basophils # (auto) 0.01 K/uL (0.00-0.20); Basophils % (auto) 0.2 %; Hemoglobin 10.6 g/dl (12.0-16.0); Immature Granulocytes # (auto) 0.06 K/uL (0.01-0.20); Immature Granulocytes % (auto) 0.9 %; Lymphocytes # (auto) 0.64 K/uL (1.20-3.40); Lymphocytes % (auto) 9.7 %; Mean Corpuscular Hemoglobin 28.8 pg (25.0-34.0); Mean Corpuscular Hgb Conc 33.1 g/dL (32.0-36.0); Mean Platelet Volume 10.8 fL (9.4-12.4); Monocytes # (auto) 0.15 K/uL (0.11-0.59); Monocytes % (auto) 2.3 %; Neutrophils # (auto) 5.73 K/uL (1.40-6.50); Neutrophils % (auto) 86.9 %; Platelet Count 160 K/uL (130-400); RDW Standard Deviation 45.1 fL (36.4-46.3); Red Blood Count 3.68 M/uL (4.20-5.40); White Blood Count 6.59 K/ul (4.8-10.8)
--- NOTE | 2023-10-16 07:06 | Surgery Progress Note ---
Date of Service October 16, 2023 Assessment & Plan (1) Bilateral knee effusions: Plan: 67-year-old female 19 years out from bilateral knee replacements with acute onset of pain discomfort swelling in her knees. She is markedly better after the aspirations. I do believe the prednisone likely had a significant effect on this. Her knee aspirates reveal elevated white cells but really unusual differential. Not consistent with infection with fairly few all polys and mostly mononuclear cells. I believe this is likely some type of reaction but I think we need to continue doing manage and cover for all sources. I think the prednisone is likely helping and Pili will continue to help mitigate this. Will continue to follow her along. Any orthopedic questions can recommend [phone] Admission and Anticipated Discharge Date Admission Date: October 14, 2023 Subjective 67-year-old female 19 years out from bilateral knee replacements admitted with bilateral knee swelling discomfort and malaise. She is doing much better this morning. We aspirated both knees. She was started on some prednisone. She is able to lift both legs today. Really not much soreness at all. Has not been out of bed yet. Physical Exam Physical Exam: Physical examination by reveals the patient is laying in bed. She looks comfortable. Examination of both knees reveal the swelling remarkably improved. Still has a blotchy appearance to the front of both knees. She can do a straight leg raise on both sides without much pain. Minimal tenderness. She is neurologically intact. Results & Data Vital Signs (Past 12 Hours) Vital Signs Temp Pulse Pulse Resp BP Pulse Ox O2 Del Method 10/16/23 03:38 36.3 C L 77 16 122/73 93 Room Air 10/15/23 22:34 36.6 C 108 H 18 150/77 H 96 Room Air 10/15/23 22:00 98 H 10/15/23 20:45 109 H 10/15/23 20:37 37.6 C H 110 H 20 138/78 91 Room Air 10/15/23 19:46 37.9 C H 112 H 24 150/76 H 93 Room Air Laboratory Results Knee joint fluid analysis was reviewed. 1 knee revealed 15,000 white cells with 14% polys. The other knee was 8000 white cells with 38% polys. Gram stain negative. Culture growth pending. PG Care Time/CCT Total # of Minutes Spent Total Time Spent with Patient: Total time spent is greater than 50% in coordination of care (as documented) at patient's floor/unit and/or counseling patient: Coding Level of Care Code 90840 Post Operative Follow-Up Diagnoses Bilateral knee effusions M25.461; M25.462
[2023-10-16 07:12] LABS: Albumin Globulin Ratio 1.3 (0.9-2); Albumin Level 3.4 gm/dl (3.4-5.0); BUN Creatinine Ratio 23.4 (10-20); Bilirubin,Total 0.5 mg/dl (0.2-1.0); Calcium 9.4 mg/dl (8.6-10.3); Est GFR (African American) 93.9 ml/min; Globulin 2.6 gm/dl (2.5-4.0); Potassium 4.2 mmol/L (3.5-5.1)
[2023-10-16 07:34] LABS: C Reactive Protein 41.24 mg/dl (0-0.5)
--- NOTE | 2023-10-16 09:47 | Hospitalist Progress Note ---
Date of Service October 16, 2023 Assessment & Plan (1) Bilateral knee effusions: Plan: -Patient has bilateral knee effusion, erythema, difficulty ambulating, and history of fever -Lyme screen negative -Blood and urine cultures drawn, results pending -Ortho consulted, joint aspiration revealed elevated white cell count and unremarkable gram stains. Patient started on prednisone.Patient's symptoms have significantly alleviated * Continue empiric antibiotics- Daptomycin and Cefepime * Continue prednisone * PT consult to determine patients ambulatory status and stability (2) Type 2 diabetes mellitus: Plan: -Home antihyperglycemics held -Blood glucose check ACHS, sliding scale insulin (3) Hyperlipidemia: Plan: -Continue to hold Atorvastatin due to concern for interaction with Daptomycin (4) Hypertension: Plan: -Continue home amlodipine-olmesartan (5) Hypothyroid: Plan: -Continue home levothyroxine (6) Migraines: Plan: -Continue home Topamax and prn Fioricet Admission and Anticipated Discharge Date Admission Date: October 14, 2023 Supervising Physician Co-Signing Physician Notes ATTESTATION I also saw the patient and confirmed villalba portions of the history and exam. I agree with the impression and plan in the medical student/resident do cumentation, with exceptions clarifications as noted below. She is feeling much better today. Much less knee pain today. She has ambulated in the room without much difficulty. EXAM 135/72, 82, 18, 36.7, 93% on room air Heart regular rate and rhythm Lungs are clear with nonlabored respirations Abdomen is soft and nontender She continues to have a blotchy erythematous rash along the knee scars bilaterally, although this is fading. She also has a similar rash -but to much less extent - along her lower abdominal scars as well. Knees without warmth. She can flex both knees with minimal difficulty. DATA Labs WBC 6.59, hemoglobin 10.6, platelet count 160 BMP is unremarkable CRP 41.24, essentially the same as yesterday Procalcitonin 6.6 (previously 10.40) RPR is nonreactive Rheumatoid factor and complement panel pending Tryptase levels pending Initial Lyme screen (serum) negative; Lyme from the aspirate is pending. Examination of the aspirate shows many leukocytes, few RBCs, no crystals. Imaging Knee x-rays demonstrate bilateral joint effusions. CT scan abdomen pelvis is rather unremarkable for acute findings. Is mention of a few prominent distal paraesophageal lymph nodes measuring up to 8 mm of uncertain clinical significance. Chest x-ray shows no acute process. Micro Culture from right knee collected 10/15/2023 shows no growth to date. Culture from left knee collected 10/15/2023 shows no growth to date. Blood cultures drawn 10/14/2023 showed no growth at 24 hours. Urine culture collected 10/14/2023 shows no growth, less than 1000 colonies. IMPRESSION & PLAN Bilateral knee effusions, uncertain etiology; possible septic arthritis of bilateral knee joints, versus allergic/autoimmune phenomena History of recent UTI, status post p.o. antibiotics with resolution of symptoms; negative urine culture upon admission Remote history of bilateral knee replacement History idiopathic angioedema It is not clear if her bilateral knee symptoms are bacterial; certainly elevated CBC, elevated procalcitonin, and lactate level consistent with bacterial infection, however her presentation (bilateral, symmetrical) is somewhat unusual; would also be unusual to see a concurrent cellulitis with bilateral joint infections, and that being said, the rash itself looks more blotchy than skin changes I would associate with a cellulitis. Patient is markedly improved today, and I suspect that this is secondary to the steroids. That being said, she did seem to have some improvement midday yesterday prior to dosing of steroids (antibiotics the main therapeutic intervention at that point) Procalcitonin still elevated upon repeat, though clinically she looks good (hemodynamically stable, afebrile, marked symptom improvement) Plan 1) continue prednisone 60 mg daily; oral likely need taper 2) continue current antibiotics until 48-hour culture; if negative, would consider sending home on oral antibiotic 3) await send out labs, including C4 level and tryptase level 4) will need outpatient follow-up with orthopedics, allergy, and perhaps rheumatology depending on results and clinical course 5) incidental note was made on CT imaging of a few prominent distal paraesophageal lymph nodes measuring up to 8 mm; not clear if this relates to current symptoms or stroke incidental; defer follow-up at this time but will discuss with PCP. Additional per resident documentation Subjective Today, patient states that she is doing better after the knee aspirations and prednisone. She states that she will try ambulating today and would like to go home if she is able to do so. 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 Patient reports having some hand numbness at night but this occurs when she exerts her body weight on her arm and typically goes away after a few seconds when she re-adjusts her sleeping position. Patient denies knee pain, fever, and chills. Review of Systems Review of Systems: All systems reviewed & are unremarkable except as noted in HPI & below Physical Exam Physical Exam: Constitutional: Alert and oriented. No acute distress HEENT: PERRL, EOMI, dry mucous membranes, oropharynx. Neck: supple. No JVD. No bruits. Thyroid normal, trachea midline, no adenopathy. Heart: normal S1 and S2. No murmurs, rubs or gallops. No pedal edema Lungs: clear to auscultation bilaterally, breath sounds equal, no respiratory distress Abdomen: soft, non-tender, non-distended. normal bowel sounds MSK: Improved bilateral knee swelling, minimal tenderness upon posterior palpation of knees Dermatologic: superficial erythematous rash on anterior aspect of knees bilaterally. Superficial redness over surgical abdominal incisions. Psychiatric: appropriate mood and congruent affect Results & Data Results & Data Vital Signs (Past 12 Hours) Vital Signs Temp Pulse Pulse Resp BP Pulse Ox O2 Del Method 10/16/23 07:55 36.6 C 93 H 17 146/81 H 94 Room Air 10/16/23 07:30 99 H 10/16/23 03:38 36.3 C L 77 16 122/73 93 Room Air 10/15/23 22:34 36.6 C 108 H 18 150/77 H 96 Room Air 10/15/23 22:00 98 H Laboratory Results 10/16/23 10/16/23 10/16/23 08:16 05:20 00:25 WBC 6.59 RBC 3.68 L Hgb 10.6 L Hct 32.0 L MCV 87.0 MCH 28.8 MCHC 33.1 RDW Std Deviation 45.1 RDW Coeff of Aliyah 14.0 Plt Count 160 MPV 10.8 Immature Gran % (Auto) 0.9 Neut % (Auto) 86.9 Lymph % (Auto) 9.7 Kershaw % (Auto) 2.3 Eos % (Auto) 0.0 Baso % (Auto) 0.2 Neut # (Auto) 5.73 Lymph # (Auto) 0.64 L Kershaw # (Auto) 0.15 Eos # (Auto) 0.00 Baso # (Auto) 0.01 Immature Gran # (Auto) 0.06 ESR Sodium 140 Potassium 4.2 Chloride 108 H Carbon Dioxide 24 Anion Gap 8 BUN 18 Creatinine 0.77 Est Cr Clr Drug Dosing 83.0 Est GFR ( Amer) 93.9 Est GFR (Non-Af Amer) 81.0 BUN/Creatinine Ratio 23.4 H Glucose 182 H POC Glucose 188 H Lactate Uric Acid Calcium 9.4 Total Bilirubin 0.5 AST 9 L ALT 11 Alkaline Phosphatase 28 L C-Reactive Protein 41.24 H 45.88 H Total Protein 6.0 Albumin 3.4 Globulin 2.6 Albumin/Globulin Ratio 1.3 Procalcitonin 6.60 H 8.02 H Fluid Comment Synovial Source Synovial Color Synovial Appearance Synovial WBC (Auto) Synovial RBC (Auto) Synovial Polynuclear % Synovial Mononuclear % RPR 10/15/23 10/15/23 10/15/23 Unknown Unknown Unknown WBC RBC Hgb Hct MCV MCH MCHC RDW Std Deviation RDW Coeff of Aliyah Plt Count MPV Immature Gran % (Auto) Neut % (Auto) Lymph % (Auto) Kershaw % (Auto) Eos % (Auto) Baso % (Auto) Neut # (Auto) Lymph # (Auto) Kershaw # (Auto) Eos # (Auto) Baso # (Auto) Immature Gran # (Auto) ESR Sodium Potassium Chloride Carbon Dioxide Anion Gap BUN Creatinine Est Cr Clr Drug Dosing Est GFR ( Amer) Est GFR (Non-Af Amer) BUN/Creatinine Ratio Glucose POC Glucose Lactate Uric Acid Calcium Total Bilirubin AST ALT Alkaline Phosphatase C-Reactive Protein Total Protein Albumin Globulin Albumin/Globulin Ratio Procalcitonin Fluid Comment Synovial Source Synovial Color Synovial Appearance Synovial WBC (Auto) Synovial RBC (Auto) 5000 Synovial Polynuclear % 14.0 38.4 Synovial Mononuclear % 86.0 61.6 RPR 10/15/23 10/15/23 10/15/23 Unknown Unknown Unknown WBC RBC Hgb Hct MCV MCH MCHC RDW Std Deviation RDW Coeff of Aliyah Plt Count MPV Immature Gran % (Auto) Neut % (Auto) Lymph % (Auto) Kershaw % (Auto) Eos % (Auto) Baso % (Auto) Neut # (Auto) Lymph # (Auto) Kershaw # (Auto) Eos # (Auto) Baso # (Auto) Immature Gran # (Auto) ESR Sodium Potassium Chloride Carbon Dioxide Anion Gap BUN Creatinine Est Cr Clr Drug Dosing Est GFR ( Amer) Est GFR (Non-Af Amer) BUN/Creatinine Ratio Glucose POC Glucose Lactate Uric Acid Calcium Total Bilirubin AST ALT Alkaline Phosphatase C-Reactive Protein Total Protein Albumin Globulin Albumin/Globulin Ratio Procalcitonin Fluid Comment Synovial Source Synovial Color Yellow Synovial Appearance Cloudy Cloudy Synovial WBC (Auto) 39190 H 8478 H Synovial RBC (Auto) 2000 Synovial Polynuclear % Synovial Mononuclear % RPR 10/15/23 10/15/23 10/15/23 Unknown Unknown Unknown WBC RBC Hgb Hct MCV MCH MCHC RDW Std Deviation RDW Coeff of Aliyah Plt Count MPV Immature Gran % (Auto) Neut % (Auto) Lymph % (Auto) Kershaw % (Auto) Eos % (Auto) Baso % (Auto) Neut # (Auto) Lymph # (Auto) Kershaw # (Auto) Eos # (Auto) Baso # (Auto) Immature Gran # (Auto) ESR Sodium Potassium Chloride Carbon Dioxide Anion Gap BUN Creatinine Est Cr Clr Drug Dosing Est GFR ( Amer) Est GFR (Non-Af Amer) BUN/Creatinine Ratio Glucose POC Glucose Lactate Uric Acid Calcium Total Bilirubin AST ALT Alkaline Phosphatase C-Reactive Protein Total Protein Albumin Globulin Albumin/Globulin Ratio Procalcitonin Fluid Comment Synovial Source Right Knee Left Knee Synovial Color Yellow Synovial Appearance Synovial WBC (Auto) Synovial RBC (Auto) Synovial Polynuclear % Synovial Mononuclear % RPR 10/15/23 10/15/23 10/15/23 20:57 18:10 15:05 WBC RBC Hgb Hct MCV MCH MCHC RDW Std Deviation RDW Coeff of Aliyah Plt Count MPV Immature Gran % (Auto) Neut % (Auto) Lymph % (Auto) Kershaw % (Auto) Eos % (Auto) Baso % (Auto) Neut # (Auto) Lymph # (Auto) Kershaw # (Auto) Eos # (Auto) Baso # (Auto) Immature Gran # (Auto) ESR Sodium Potassium Chloride Carbon Dioxide Anion Gap BUN Creatinine Est Cr Clr Drug Dosing Est GFR ( Amer) Est GFR (Non-Af Amer) BUN/Creatinine Ratio Glucose POC Glucose 156 H 98 Lactate Uric Acid Calcium Total Bilirubin AST ALT Alkaline Phosphatase C-Reactive Protein Total Protein Albumin Globulin Albumin/Globulin Ratio Procalcitonin 10.40 H Fluid Comment Synovial Source Synovial Color Synovial Appearance Synovial WBC (Auto) Synovial RBC (Auto) Synovial Polynuclear % Synovial Mononuclear % RPR Nonreactive 10/15/23 10/15/23 15:04 13:21 WBC 9.75 RBC 3.47 L Hgb 10.0 L D Hct 30.8 L MCV 88.8 MCH 28.8 MCHC 32.5 RDW Std Deviation 46.6 H RDW Coeff of Aliyah 14.5 Plt Count 149 MPV 10.2 Immature Gran % (Auto) 0.5 Neut % (Auto) 79.6 Lymph % (Auto) 12.5 Kershaw % (Auto) 4.7 Eos % (Auto) 2.4 Baso % (Auto) 0.3 Neut # (Auto) 7.76 H Lymph # (Auto) 1.22 Kershaw # (Auto) 0.46 Eos # (Auto) 0.23 Baso # (Auto) 0.03 Immature Gran # (Auto) 0.05 ESR 35 H Sodium 137 Potassium 3.7 Chloride 106 Carbon Dioxide 24 Anion Gap 7 BUN 24 H Creatinine 0.88 Est Cr Clr Drug Dosing 72.2 Est GFR ( Amer) 79.9 Est GFR (Non-Af Amer) 68.9 BUN/Creatinine Ratio 27.3 H Glucose 124 H POC Glucose 121 H Lactate 1.7 Uric Acid 5.4 Calcium 8.5 L Total Bilirubin 0.6 D AST 9 L ALT 12 Alkaline Phosphatase 28 L C-Reactive Protein 42.38 H Total Protein 5.6 L D Albumin 3.3 L Globulin 2.3 L Albumin/Globulin Ratio 1.4 Procalcitonin Fluid Comment Synovial Source Synovial Color Synovial Appearance Synovial WBC (Auto) Synovial RBC (Auto) Synovial Polynuclear % Synovial Mononuclear % RPR
[2023-10-16] MEDS: predniSONE 20 MG TAB PO SCH (11:06)
[2023-10-17 07:06] LABS: Basophils # (auto) 0.01 K/uL (0.00-0.20); Basophils % (auto) 0.1 %; Hematocrit (blood only) 28.3 % (37.0-47.0); Hemoglobin 9.2 g/dl (12.0-16.0); Immature Granulocytes # (auto) 0.06 K/uL (0.01-0.20); Immature Granulocytes % (auto) 0.8 %; Lymphocytes # (auto) 1.25 K/uL (1.20-3.40); Lymphocytes % (auto) 17.4 %; Mean Corpuscular Hemoglobin 28.7 pg (25.0-34.0); Mean Corpuscular Hgb Conc 32.5 g/dL (32.0-36.0); Mean Corpuscular Volume 88.2 fL (80.0-100.0); Mean Platelet Volume 10.6 fL (9.4-12.4); Monocytes # (auto) 0.42 K/uL (0.11-0.59); Monocytes % (auto) 5.8 %; Neutrophils # (auto) 5.46 K/uL (1.40-6.50); Neutrophils % (auto) 75.9 %; Platelet Count 205 K/uL (130-400); RDW Coefficient of Variation 14.6 % (11.5-14.5); RDW Standard Deviation 46.9 fL (36.4-46.3); Red Blood Count 3.21 M/uL (4.20-5.40)
--- NOTE | 2023-10-17 07:07 | Surgery Progress Note ---
Date of Service October 17, 2023 Assessment & Plan (1) History of bilateral knee replacement: Plan: 67-year-old female 19 years out from bilateral knee replacements with bilateral knee effusions. She has had a medical management and knee aspirations. Her knees are looking and feeling much better. Clinically she is doing well. Cultures are no growth to date. My suspicion is this is some type of inflammatory process. Does not appear infectious clinically. She is improving. Plan: Recommend continued conservative and appropriate medical management. No orthopedic intervention is warranted at this point. Any questions or concerns can contact me at [phone] (2) Bilateral knee effusions: Admission and Anticipated Discharge Date Admission Date: October 14, 2023 Subjective 67-year-old female 19 years out from bilateral knee replacements admitted with bilateral knee effusions and systemic signs of possible infection. She is doing quite a bit better since admission and medical management. We aspirated her knees and that her knees are feeling much better. No new complaints. Physical Exam Physical Exam: Physical exam shows a pleasant middle-age female. She is lying in bed looks quite comfortable this morning. Examination of the knees reveals well-healed incisions. Still he has some slight blotchiness to the incision sites. Fairly minimal effusions. Much less tender to palpation. She is neurologically intact Results & Data Vital Signs (Past 12 Hours) Vital Signs Temp Pulse Pulse Resp BP Pulse Ox O2 Del Method 10/17/23 03:41 36.6 C 69 16 110/66 93 Room Air 10/16/23 22:46 37 C 78 18 131/81 93 Room Air 10/16/23 22:25 78 10/16/23 19:37 36.9 C 79 18 136/81 94 Room Air Laboratory Results Culture results are no growth. PG Care Time/CCT Total # of Minutes Spent Total Time Spent with Patient: Total time spent is greater than 50% in coordination of care (as documented) at patient's floor/unit and/or counseling patient: Coding Level of Care Code 26507 SUB INP/OBS CARE 2/35MIN Diagnoses History of bilateral knee replacement Z96.653 Bilateral knee effusions M25.461; M25.462
[2023-10-17 07:36] LABS: Albumin Globulin Ratio 1.3 (0.9-2); Albumin Level 3.2 gm/dl (3.4-5.0); BUN Creatinine Ratio 26.5 (10-20); Bilirubin,Total 0.3 mg/dl (0.2-1.0); C Reactive Protein 18.45 mg/dl (0-0.5); Calcium 9.4 mg/dl (8.6-10.3); Creatinine Clr Calc Pharmacy 77.4 ml/min; Est GFR (African American) 85.8 ml/min; Globulin 2.4 gm/dl (2.5-4.0); Potassium 3.7 mmol/L (3.5-5.1); Total Protein 5.6 gm/dl (6.0-8.3)
--- NOTE | 2023-10-17 15:16 | Discharge Summary ---
Date of Service October 17, 2023 Admission HPI Per Admitting Provider 67-year-old woman with a past medical history of neuropathy, fibromyalgia, arthritis, remote history of bilateral knee replacements, sacroiliitis, hypertension, hyperlipidemia, diabetes who presents with fevers, weakness, and ambulatory difficulty due to bilateral knee pain and swelling. Patient states that symptoms started yesterday, had general feeling of malaise and fevers with Tmax 102.6. Also notes feeling generally tired and weak, began having difficulty walking. At baseline, patient able to ambulate independently without assistance but has struggled with weightbearing for past day. Patient reports that she had a recent UTI, completed course of abx though unsure which antibiotic she was given. Since then, denies urinary sx, no dysuria or urinary frequency. Apart from recent UTI, denies recent illness. Denies known tick bites. Denies prior history of joint infections. ED Course: Labs significant for WBC 18, ESR 38, CRP 28, Procal 6.3, lactate 3.1 UA negative, CXR negative, respiratory biofire negative XR knee significant for large bilateral effusions Blood and urine cultures drawn Given Ceftriaxone x1, Doxycycline x1 Started on Daptomycin Admission Exam Per Admitting Provider General: Alert and oriented. No acute distress Cardiac: +tachycardia Respiratory: No increased work of breathing Abdominal: Non-tender, non-distended. MSK: +bilateral knee swelling, non-tender to palpation, +superficial erythematous rash on anterior aspect of knees bilaterally Principal Diagnosis Lower extremity weakness, b/l knee effusion Discharge Exam Constitutional: Alert No acute distress HEENT: moist mucous membranes Heart: normal S1 and S2. No murmurs, rubs or gallops. No pedal edema Lungs: clear to auscultation bilaterally, breath sounds equal, no respiratory distress MSK: Improved bilateral knee swelling Dermatologic: improved superficial erythematous rash on anterior aspect of knees bilaterally. Psychiatric: appropriate mood and congruent affect Discharge Data Allergies Allergy/AdvReac Type Severity Reaction Status Date / Time No Known Allergies Allergy Verified 08/06/23 14:27 Consultations 10/14/23 19:57 ED Decision to Admit Stat 10/14/23 21:24 Consult Orthopedic Surgery Routine 10/15/23 13:27 Consult Allergy / Immunology Routine Ordered Studies 10/14/23 15:36 CT abd pelvis IV con only Stat Hospital Course (1) Bilateral knee effusions: (2) History of UTI: (3) History of bilateral knee replacement: (4) LPRD (laryngopharyngeal reflux disease): (5) Dyslipidemia: (6) Hypertension: (7) Type 2 diabetes mellitus: (8) Hypothyroid: Plan 67-year-old woman with a past medical history of neuropathy, fibromyalgia, arthritis, remote history of bilateral knee replacements, sacroiliitis, hypertension, hyperlipidemia, diabetes who presents with fevers, weakness, and ambulatory difficulty due to bilateral knee pain and swelling. Bilateral knee effusion/LE weakness - Blood and urine cultures drawn, negative at 24hrs - Empiric antibiotics - will discharge on 7 days of doxycycline, received daptomycin, cefepime while inpatient - Ortho consulted, joint aspiration performed, appears inflammatory less likely infectious - Unclear etiology, even at discharge - Inflammatory markers improving prior to discharge - Rheumatologic/allergic differential high on list Labs drawn, awaiting results: Rh factor, Anti-proteinase 3, Anti- myeloperoxidase, ANCA, Complement C3/4, total complement CH50 Outstanding infectious labs: Typhus, Rickettsia, Q fever, babesia, A phagocytophilium, E. chaffeensis, - Has follow up with rheumatology, neurology T2DM: - Home antihyperglycemics held - Blood glucose check ACHS, sliding scale insulin - Restart home regimen on discharge HLD: - Atorvastatin held due to concern for interaction with Daptomycin - Restart at discharge HTN: - Continue home amlodipine-olmesartan Hypothyroidism: - Continue home levothyroxine Migraines: - Continue home Topamax and prn Fioricet Total Time Total Time Spent Total Time Spent (In Minutes): 40 Discharge Plan Discharge Items Patient Disposition: Home - Self-Care Reason For Visit: FEVERS, BILATERAL KNEE PAIN/EFFUSION Discharge Diagnosis: b/l LE weakness, b/l knee effusion, fever Activity: Resume your previous activity Non-emergency contact: Primary Care Provider Call non-emergency contact if: you have any medication questions, your symptoms worsen and your pain is not controlled Follow-up/Referrals: Billy Jhaveri MD [Physician] - 10/27/23 2:00 pm Deborah Owen MD [Primary Care Provider] - 10/30/23 10:30 am (APPT. WITH Adalberto CASH PA-C) Mateusz Woo DO [Physician] - 10/23/23 1:00 pm Diet: Carb Consistent or DM2 Addtl Attending Provider Instructions: You were admitted to the hospital for weakness, knee swelling, and fever. You were treated with antibiotics, steroids and fluids. On the day of discharge, you were seen by PT who determined you were safe to return home. Throughout your hospital stay several differential diagnoses were considered including infectious and rheumatologic causes of your presentation. Your blood, urine, and knee fluid cultures were all negative for signs of infection. Your symptoms greatly improved with a course of steroids which makes a rheumatologic or autoimmune cause of your symptoms much more likely. We could not definitively exclude an infectious cause of your symptoms. For this reason, you will be discharged on both antibiotics and a prednisone taper. While you were here many blood tests were obtained to begin looking for any signs of a rheumatologic or allergic cause of your symptoms. These results are not yet available. It is very important that you follow up with your primary care physician to review these results as they become available. We have also requested an appointment with rheumatology - their office will reach out to you to schedule an appointment. A discharge summary will be sent to your primary care physician to ensure continuity of care. Please bring this discharge summary with you to your next office appointment so that your provider can review it at that time. Follow-up appointments: Make a follow-up appointment with your PCP within the next week. It is very important that you follow up with them shortly after discharge from the hospital. Keep all your follow-up appointments as already scheduled. If you cannot make an appointment, notify your provider. Medications: Your medication list has been reviewed and reconciled upon discharge to ensure accuracy and continuity of care. An updated list of all your medications is included with your hospital discharge paperwork. Please review this list closely, and make note of any changes. We sent a new medication called doxycycline to your pharmacy. Take doxycycline (100mg) one tablet twice daily for 7 days. We sent a new medication called prednisone to your pharmacy. Take prednisone according to the taper instructions that will be provided by the pharmacy. Take your medications as instructed; do not skip a dose of your medicines. Make sure all of your doctors know every medicine you are taking (including qkhd-zns-tgyktab medicines, vitamins, and supplements). Call your primary care provider before taking any new medicines (including nbsv-fur-nrohcbi medicines, vitamins, and supplements), because some of these may interact with your current medications, or may make your symptoms worse. Tell your primary care provider if you cannot afford your medications. CONTACT YOUR PRIMARY CARE PROVIDER if you experience any of the following: Increased muscle weakness Recurrent swelling in your knees Difficulty following your treatment plan, or difficulty taking medications CALL 911 OR GO TO THE EMERGENCY DEPARTMENT if you experience any of the following: Sudden, severe abdominal pain or nausea/vomiting Severe chest pain, or chest pain that radiates (moves) to your jaw or arm Sudden, severe shortness of breath or difficulty breathing Thank you for allowing us to participate in your care. Pending Studies at Discharge: Yes Stand-Alone Forms: My [facility] Medications and DC Order Prescriptions: New doxycycline hyclate 100 mg tablet 100 mg PO BID 7 Days Qty: 14 0RF prednisone 10 mg tablet 10 mg PO DIRECTED Qty: 27 0RF Rx Instructions: Take 6 tablets tomorrow, Take 4 tablets for 3 days, Take 2 Tablets for 3 days, Take 1 Tablet for 3 days Continued epinephrine 0.3 mg/0.3 mL auto-injector 0.3 mg IM Q20M PRN (Reason: anaphylaxis) Qty: 2 0RF Xolair 150 mg/mL syringe 300 mg subcut .COMPLEX Qty: 2 11RF Rx Instructions: INJECT 300 mg subcut every 4 weeks at home APPROVED GOOD 11/25/22-01/09/24 atorvastatin 40 mg tablet 40 mg PO HS Qty: 90 3RF Hold Instructions: while on paxlovid famotidine 40 mg tablet 40 mg PO BID Qty: 180 3RF Rx Instructions: TAKE 1 TABLET TWICE A DAY levothyroxine [Synthroid] 125 mcg tablet 125 mcg PO QAM Qty: 90 3RF metoprolol succinate 100 mg tablet extended release 24 hr 100 mg PO QAM Qty: 90 3RF metformin 500 mg tablet extended release 24 hr 1,000 mg PO BID Qty: 360 3RF Trulicity 0.75 mg/0.5 mL pen injector 0.75 mg subcut WK Qty: 6 3RF fexofenadine [Ivon Allergy] 180 mg tablet 180 mg PO BID Patient Comments: for angioedema topiramate [Topamax] 25 mg tablet 25 mg PO BID Qty: 180 1RF tlahrxhpqg-rdkhibzzamijg-belf 50-325-40 mg tablet 1 tab PO BID PRN (Reason: headache) Qty: 10 3RF Rx Instructions: limit 2 days a week doxepin 100 mg capsule 100 mg PO HS Qty: 90 1RF Ubrelvy 50 mg tablet 50 mg PO UD PRN (Reason: Migraine Headache) 0RF alpha lipoic acid 600 mg Tablet 600 mg PO QAM omeprazole 20 mg capsule,delayed release(DR/EC) 20 mg PO QPM cholecalciferol (vitamin D3) 125 mcg (5,000 unit) capsule 125 mcg PO QAM amlodipine-olmesartan 5-40 mg tablet 1 tab PO HS Patient Comments: currently taking 2 separate pills until finished w/current script Discharge Orders: Discharge Order (Routine); Ordered 10/17/23 Ordered By: Ambrosio Dawson Admission Data Admit Date/Time: 10/14/23 20:45 Attending Provider: Lizbeth Hunt Admit Provider: Dong Jay Primary Care Provider: Deborah Owen Other Providers: Silvio Gomez; Jl Sen; Obey Seymour Other Interventions: Discharge Summary Assessment (RN) Last Done: 10/17/23 15:07 Supervising Physician Co-Signing Physician Notes I personally examined the patient and verified villalba points of history and exam, discussed case, and agree with decision making and plan documented by Dr. Fidel salazar. On exam, patient reports she is clinically improved and would like to be discharged home. Reviewed initial presentation with bilateral lower extremity weakness in the setting of chronic neuropathy and acute bilateral knee pain and effusions. Unclear etiology at this point. Suspect underlying rheumatologic component, recommend referral for outpatient evaluation. Patient will continue doxycycline and prednisone in the interim and follow-up with PCP to review hospitalization as well as pending labs. Patient was evaluated by PT today and determined safe to go home. Patient may benefit from PT in the future to encourage conditioning and ambulation. Resident Activity Tracking Resident Involvement: Resident Care Provided Care Provided: Adult Hospital Medicine
[2023-10-18 00:17] LABS: Babesia microti DNA Not Detected (Not Detected)
[2023-10-18 01:02] LABS: Lyme DNA PCR CSF or Synovial Not Detected (Not Detected)
[2023-10-18 15:09] LABS: Ehrlichia chaff DNA Bld Negative (Negative)
[2023-10-21 16:02] LABS: ANCA Screen Negative (Negative); Myeloperoxidase Ab <1.0 AI (<1.0); Proteinase-3 AB <1.0 AI (<1.0)
[2023-10-21 17:03] LABS: Complement C3 106 mg/dL (83-193); Complement Total(CH50) >60 U/mL (31-60); Rheumatoid Factor <14 IU/mL (<14)
[2023-10-21 17:37] LABS: Q Fever IgG, Phase I NEGATIVE; Q Fever Phase I IgM Antibody NEGATIVE; Q Fever Phase II IgG Antibody NEGATIVE; Q Fever Phase II IgM Antibody NEGATIVE; R. typhi IgG Ab NOT DETECTED; R. typhi IgM Ab NOT DETECTED; RMSF IgG Ab NOT DETECTED; RMSF IgM Ab NOT DETECTED
== END 2023-10-17 15:40 | disposition home or self-care (01) | DRG 566 ==
LOC: ED 12:16 → SUATTDRO 20:45 → EDINP 20:45 → 2N 21:49